=== PATIENT | female | born 1995 | race Caucasian/White ===

== ENCOUNTER 2017-07-27 11:13 | Emergency (ER) | payer SELFPAY ==
[2017-07-27 11:15] VITALS: BP 106/51; PULSE 89; RESP 17; TEMP 36.2; O2SAT 98; BMI 38.3
--- NOTE | 2017-07-27 12:00 | ED.VISSUMM ---
- ER Visit Summary Date of Service: 07/27/17 Chief Complaint: Left ear pain, fever, chills, cough History of Present Illness: The patient is a 22 F who reports onset of body aches, fever, cough on the . Patient states her T-max is 101.3. This morning she woke with left ear pain states she is not able to hear out of it as well. Physical Examination: Vital signs are unremarkable. Patient's temperature here is 97.1. Patient is in no acute distress and is nontoxic appearing. He is sitting in a bedside chair. Head and neck examination is remarkable for left TM erythema and bulging. Right TM is clear. Posterior pharynx examination reveals drainage, but no tonsillar enlargement. Heart is regular rate and rhythm. Palpable pulses are noted throughout. Lungs are clear with good air movement throughout. Abdomen is soft and nontender. Bowel sounds are noted. Test Results: [] Emergency Department Course and Treatment: Patient was treated with Augmentin for her ear infection. I discussed the possibility of influenza. Patient states she is not interested in taking Tamiflu so she does not want to bother with a test. Treatment Plan: [] Disposition: Discharge Impression: Left otitis media This note was generated with Gigwalk dictation software. It may contain incorrect words, spelling, and punctuation that were not noted in review of the chart prior to signing ED Disposition - Plan for ED Patient: Disposition: Home or Assisted Living Chief Complaint: Ear Problem Instructions: ED Otitis Media Acute Adult Prescriptions: Amoxicillin/Potassium Clav [Augmentin 875-125 Tablet] 1 each PO BID #20 tablet Referrals: Red Freed MD [STAFF PHYSICIAN] - As Needed
[2017-07-27] MEDS: Amox/Clavulanate 875 MG Tablet PO (12:17)
[2017-07-27 12:18] VITALS: PULSE 84; RESP 17; O2SAT 98
== END 2017-07-27 12:18 | disposition home or self-care (01) ==
PROVIDERS: Emergency Provider Emergency Medicine
DX: H66.92 Otitis media, unspecified, left ear (principal); F41.9 Anxiety disorder, unspecified; F33.9 Major depressive disorder, recurrent, unspecified; F17.200 Nicotine dependence, unspecified, uncomplicated
CPT/HCPCS: 99283

== ENCOUNTER 2017-10-09 01:56 | Emergency (ER) | payer SELFPAY ==
[2017-10-09 01:58] VITALS: BP 143/83; PULSE 76; RESP 16; TEMP 37.1; O2SAT 99; BMI 36.8
--- NOTE | 2017-10-09 02:08 | ED.DCSUM_ITS ---
- ER Visit Summary Date of Service: 10/09/17 Chief Complaint: [Laceration left index finger] History of Present Illness: The patient is a 22 F [presents the emergency department with laceration to her left index finger. Patient states this evening she was trying to cut a grape when she accidentally lacerated her index finger. Patient states her last tetanus shot was approximately 8 years ago.] Physical Examination: [Left index finger-there is a 1 cm laceration to the dorsal-radial aspect of the distal phalanx. The wound is well approximated and just minimal blood oozing. Patient has normal range of motion and normal sensation.] Test Results: [None indicated] Emergency Department Course and Treatment: [Discussed with patient options of one suture versus cleaning the wound and applying Steri-Strips. Patient agrees with Steri-Strips at this time. Patient received tetanus booster.] Treatment Plan: [Patient to follow-up with primary care physician within next 5- 7 days for wound check.] Disposition: [Discharged home in stable condition. Patient advised to return if increasing pain, redness, swelling, or condition should worsen in any way.] Impression: [Laceration left index finger 1 cm with Steri-Strip repair] This note was generated with [employer]Now dictation software. It may contain incorrect words, spelling, and punctuation that were not noted in review of the chart prior to signing ED Disposition - Plan for ED Patient: Chief Complaint: Laceration Referrals: Care Physician,No Primary [Primary Care Provider] -
--- NOTE | 2017-10-09 02:08 | ED.DEP ---
ED Disposition - Plan for ED Patient: Chief Complaint: Laceration Instructions: ED Laceration Hand, ED Laceration Small Superf No Sutr Referrals: Care Physician,No Primary [Primary Care Provider] - Bunny Meyers MD [STAFF PHYSICIAN] - 5-7 Days
[2017-10-09] MEDS: Diphth,Pertuss(Acell),Tet Vac 0.5 ML Vial IM (02:16)
== END 2017-10-09 02:24 | disposition home or self-care (01) ==
LOC: ED 02:08
PROVIDERS: Emergency Provider Emergency Medicine
DX: S61.211A Laceration without foreign body of left index finger without damage to nail, initial encounter (principal); W26.0XXA Contact with knife, initial encounter; Y93.9 Activity, unspecified; Y92.9 Unspecified place or not applicable; Y99.9 Unspecified external cause status; Z23 Encounter for immunization; Z72.0 Tobacco use
CPT/HCPCS: 90715; 99283

== ENCOUNTER 2017-12-02 19:01 | Emergency (ER) | payer SELFPAY ==
[2017-12-02 19:02] VITALS: BP 120/69; PULSE 70; RESP 16; TEMP 36.8; O2SAT 98
[2017-12-02 19:13] VITALS: O2SAT 96
--- NOTE | 2017-12-02 19:57 | EKG12_ITS ---
Test Reason : SOB Blood Pressure : / mmHG Vent. Rate : 064 BPM Atrial Rate : 064 BPM P-R Int : 122 ms QRS Dur : 098 ms QT Int : 420 ms P-R-T Axes : 064 079 049 degrees QTc Int : 433 ms Normal sinus rhythm Normal ECG Confirmed by JOVAN COLORADO ([id number]), editor map MAE ALLEN ([id number]) on 12/14/2017 6:43:31 PM Referred By: NORMAN Confirmed By:JOVAN COLORADO
--- NOTE | 2017-12-02 20:00 | RAD_ITS ---
STUDY: X-RAY CHEST REASON FOR EXAM: Female, 22 years old. Shortness of breath TECHNIQUE: Single frontal view COMPARISON: June 19, 2017 FINDINGS: The lungs are clear and expanded. There is no demonstrated pleural abnormality. Normal size heart. Normal mediastinum and aleksander. Normal visualized pulmonary arteries. Normal visualized aortic arch and descending thoracic aorta. Normal visualized thoracic spine. Normal visualized ribs, clavicles, and shoulders. There is no demonstrated abnormality of the visualized soft tissue structures of the upper abdomen. RAD/Chest 1 View (Portable) IMPRESSION: Normal x-ray examination of the chest. Electronically Signed: Kenneth Weinberg DO at 20:43 EDT Tel [phone], Service support ,
[2017-12-02 20:50] LABS: Absolute Lymphocyte Count 2.99 X10^3/ul (0.83-4.51); Absolute Neutrophil Count 8.1 X10^3/uL (2.0-7.7); Basophil# 0.03 X10^3/uL; Basophil% 0.2 % (0-1); Eosinophil# 0.31 X10^3/uL; Eosinophils% 2.6 % (0-5); Hematocrit 40.3 % (37-47); Hemoglobin 13.3 g/dl (12.0-15.0); Lymphocyte # 2.99 X10^3/ul (4.0); Lymphocyte % 24.8 % (19-41); Mean Corpuscular Hgb 27.6 pg (27.0-32.0); Mean Corpuscular Volume 83.6 fL (81-99); Mean Platelet Vol. 9.9 fl (6.2-12.0); Monocyte# 0.59 X10^3/uL; Monocyte% 4.9 % (0-10); Neutrophil # 8.12 X10^3/uL (2.7-7.7); Neutrophil % 67.4 % (47-70); Platelet Count 252 K/mm3 (150-450); RBC Distribution Width CV 13.7 % (11.6-14.6); RBC Distribution Width SD 41.5 fl (35.1-43.9); Red Blood Count 4.82 M/mm3 (4.2-5.4); White Blood Count 12.1 K/mm3 (4.4-11.0)
[2017-12-02 21:04] LABS: POSITIVE COUNT NO; POSITIVE DIFFERENTIAL NO; POSITIVE MORPHOLOGY NO
[2017-12-02 21:10] LABS: Anion Gap 6 (5-15); BUN 13 mg/dL (7-18); BUN/Creat Ratio 15.2 RATIO (10-20); Calcium,Total 8.6 mg/dL (8.5-10.1); Chloride 108 mmol/L (98-107); Creatinine, Serum 0.86 mg/dL (0.55-1.02); EST Glomerular Filtration Rate 86 mL/min (>60); Est Glom Filt Rate - Afr Amer 104 mL/min (>60); Estimated Creatinine Clearance 3.84 ml/min; Glucose 106 mg/dL (74-106); Potassium 3.4 mmol/L (3.5-5.1); Sodium Level 139 mmol/L (136-145)
[2017-12-02] MEDS: Ipratropium/Albuterol Sulfate 3 ML AMPUL.NEB INHALATION (22:09)
[2017-12-02 22:11] VITALS: PULSE 84; RESP 13
--- NOTE | 2017-12-02 22:54 | ED.VISSUMM ---
- ER Visit Summary Date of Service: 12/02/17 Chief Complaint: Shortness of breath History of Present Illness: The patient is a 22 F with shortness of breath that started this morning. Associated with a sore throat and some nausea. No significant past medical history. She does smoke. No fevers or other associated symptoms. Physical Examination: Vital signs unremarkable. Afebrile. Heart regular. Lungs clear. Abdomen soft and nontender calf soft and supple. Skin appears normal. Test Results: EKG showed sinus rhythm at a rate of 64. Chest x-ray normal. Laboratory studies unremarkable except for a white count of 12.1, potassium 3.4. Chest x-ray normal. Emergency Department Course and Treatment: Patient received a breathing treatment. This helped greatly with her symptoms. She did complain of some chest pain, so we did check an EKG and troponin which were normal. She is PERC negative Patient likely has an acute bronchitis. Albuterol as needed. Follow-up with primary care. Return if worse. Treatment Plan: As above Disposition: Discharged Impression: 1. Acute bronchitis This note was generated with Gochikuru dictation software. It may contain incorrect words, spelling, and punctuation that were not noted in review of the chart prior to signing ED Disposition - Plan for ED Patient: Chief Complaint: Shortness of Breath Referrals: Care Physician,No Primary [Primary Care Provider] -
--- NOTE | 2017-12-02 22:57 | ED.DEP ---
ED Disposition - Plan for ED Patient: Chief Complaint: Shortness of Breath Instructions: ED Bronchitis Asthmatic Prescriptions: Albuterol Inhaler [Ventolin Hfa] 2 puff INHALATION Q4H PRN PRN #1 inhaler PRN Reason: Wheezing Referrals: Ion Srivastava MD [NON-STAFF] -
[2017-12-02 23:08] VITALS: BP 141/75; PULSE 88; RESP 23; O2SAT 98
--- NOTE | 2017-12-02 23:09 | ED.RN ---
IV DC'ED, CATHETER, INTACT, SMALL GAUZE DRESSING PLACED. DISCHARGE INSTRUCTIONS GIVEN TO AND REVIEWED WITH PATIENT, PATIENT DENIES QUESTIONS OR CONCERNS AND VOICES UNDERSTANDING OF DISCHARGE INSTRUCTIONS. PT AMBULATES OUT OF ROOM WITHOUT DIFFICULTY.
== END 2017-12-02 23:10 | disposition home or self-care (01) ==
PROVIDERS: Emergency Provider Emergency Medicine
DX: J20.9 Acute bronchitis, unspecified (principal); F17.200 Nicotine dependence, unspecified, uncomplicated
CPT/HCPCS: 71045; 80048; 84484; 85025; 93005; 94640; 99284; A4216

== ENCOUNTER 2018-04-08 01:35 | Emergency (ER) | payer SELFPAY ==
[2018-04-08 01:35] VITALS: BP 146/85; PULSE 84; RESP 18; TEMP 37; O2SAT 99; BMI 39.9
--- NOTE | 2018-04-08 01:49 | ED.DCSUM_ITS ---
- ER Visit Summary Date of Service: 04/08/18 Chief Complaint: Sore throat History of Present Illness: The patient is a 22 F with no primary care physician. She reports she has sore throat that began yesterday. She has sharp pain is 7-10 with swallowing. Is also worsened with breathing or talking. Is 5 out of 10 at rest. She is not taking anything for pain. She has had subjective fever and chills. She denies a cough. States that her 2-year-old son at home has strep throat. Physical Examination: Vitals: Stable. Afebrile. General: Well-nourished and well-developed. Head: Normocephalic atraumatic. HEENT: Tonsils are absent. There is posterior oropharyngeal erythema. There is no evidence of a peritonsillar abscess. She does have tender anterior cervical adenopathy bilaterally. Neck: Supple, no lymphadenopathy. No JVD. Nontender. Cardiovascular: Regular rate and rhythm. No murmurs. Respiratory: No respiratory distress. Clear to auscultation bilaterally. Abdominal: Soft, nontender, nondistended, normal bowel sounds. No guarding, rebound, or peritoneal signs. Back: Nontender. Extremities: Nontender, no edema. Skin: Normal color, no rash. Neurologic: Alert and oriented ?3. Cranial nerves II through XII are intact. Normal strength and sensation. Psych: Normal affect. Emergency Department Course and Treatment: Patient's Centor score is 3. She does not have enlarged tonsils or exudate as she has status post tonsillectomy. I discussed her the treatment options. She would like to be treated regardless of the results of the strep test. Because of this this was not sent. Patient was given a dose of naproxen, amoxicillin, dexamethasone p.o. She is resting comfortably. Treatment Plan: Patient will be discharged on amoxicillin and naproxen. Instructed to follow-up Dr. Velázquez in 1 week if not improving. Return to the emergency department for any worsening symptoms. Disposition: To home in improved and stable condition. Impression: 1. Pharyngitis, presumed strep. This note was generated with Green[employer] software. It may contain incorrect words, spelling, and punctuation that were not noted in review of the chart prior to signing ED Disposition - Plan for ED Patient: Disposition: Home or Assisted Living Chief Complaint: Sore Throat Instructions: ED Strep Pharyngitis Poss Prescriptions: Naproxen [Naprosyn] 500 mg PO BID #14 tablet Amoxicillin 500 mg PO TID #30 tablet Referrals: Karli Velázquez MD [STAFF PHYSICIAN] - 1 Week if not improving
[2018-04-08] MEDS: Naproxen 250 MG Tablet 500 MG PO (02:06)
[2018-04-08] MEDS: AMOXICILLIN 500 MG CAPSULE PO (02:06)
[2018-04-08 02:09] VITALS: BP 131/73; PULSE 91; RESP 16; O2SAT 100
--- NOTE | 2018-04-08 02:10 | ED.RN ---
THIS NURSE REVIEWED D/C INSTRUCTIONS WITH PT. PT VERBALIZED UNDERSTANDING OF INSTRUCTIONS. PT DENIES FURTHER NEEDS OR QUESTIONS AT THIS TIME. PT AMBULATES FROM ROOM ON OWN WITHOUT ASSISTANCE FROM STAFF
== END 2018-04-08 02:11 | disposition home or self-care (01) ==
LOC: ED 02:02
PROVIDERS: Emergency Provider Emergency Medicine
DX: J02.9 Acute pharyngitis, unspecified (principal); J45.909 Unspecified asthma, uncomplicated; Z72.0 Tobacco use
CPT/HCPCS: 99283

== ENCOUNTER 2020-02-18 05:07 | Emergency (ER) | payer SELFPAY ==
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
[2020-02-18 05:08] VITALS: BP 134/87; PULSE 95; RESP 18; TEMP 36.3; O2SAT 96; BMI 39.9
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
[2020-02-18 06:11] VITALS: BP 134/87; PULSE 95; RESP 18; TEMP 36.3; O2SAT 96
== END 2020-02-18 06:38 | disposition home or self-care (01) ==
PROVIDERS: Emergency Provider Emergency Medicine
DX: S90.31XA Contusion of right foot, initial encounter (principal); S90.511A Abrasion, right ankle, initial encounter; W20.8XXA Other cause of strike by thrown, projected or falling object, initial encounter; Y93.9 Activity, unspecified; Y92.9 Unspecified place or not applicable; Y99.9 Unspecified external cause status; F17.200 Nicotine dependence, unspecified, uncomplicated
CPT/HCPCS: 73610; 73630; 99282

== ENCOUNTER 2020-05-16 10:44 | Emergency (ER) | payer SELFPAY ==
[2020-05-16 10:53] VITALS: BP 125/90; PULSE 117; RESP 24; TEMP 37.7; O2SAT 98; BMI 41.5
[2020-05-16 10:57] VITALS: RESP 22; O2SAT 99
--- NOTE | 2020-05-16 11:50 | CM.ED ---
SOCIAL WORK Seed Pelleter from [place] here meeting with patient. Shruthi Guzmán, CHILD CARE GROUP LEADER, RECEIVER DISPATCHER
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
[2020-05-16 12:05] VITALS: BP 143/66; PULSE 92; RESP 16; O2SAT 98
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
[2020-05-16 13:00] VITALS: BP 143/66; PULSE 99; RESP 17; O2SAT 96
== END 2020-05-16 13:01 | disposition home or self-care (01) ==
PROVIDERS: Emergency Provider Emergency Medicine
DX: T59.811A Toxic effect of smoke, accidental (unintentional), initial encounter (principal); X00.1XXA Exposure to smoke in uncontrolled fire in building or structure, initial encounter; Y93.9 Activity, unspecified; Y92.009 Unspecified place in unspecified non-institutional (private) residence as the place of occurrence of the external cause; Y99.9 Unspecified external cause status; S50.311A Abrasion of right elbow, initial encounter; E66.9 Obesity, unspecified; F17.200 Nicotine dependence, unspecified, uncomplicated
CPT/HCPCS: 99285; A4216

== ENCOUNTER 2021-01-26 14:45 | Emergency (ER) | payer SELFPAY ==
[2021-01-26 14:46] VITALS: BP 149/75; PULSE 96; RESP 14; TEMP 35.8; O2SAT 97; BMI 48.4
--- NOTE | 2021-01-26 15:09 | EDS_ITS ---
HPI HPI - GI History of Present Illness Chief Complaint: Abd Pain Detail of Chief Complaint: King with abdominal pain and diarrhea that started 4 days ago. Informant: patient Narrative Narrative: Patient presents to the emergency department complaint of abdominal pain and diarrhea for 4 days ago. Patient thinks she may have food poisoning. She denies eating any undercooked or unusual foods. No other sick contacts known. Patient denies any fever or cough. She is had some mild dysuria. She denies any blood in her stool. Patient is 30 weeks . She is G2, P1. Patient still feeling the baby move. She is had no vaginal bleeding. Prior similar symptoms: No PFSH PFSH Home Medications albuterol sulfate 2 puff INHALATION Q4H PRN PRN #1 inhaler 12/02/17 [Rx Last Taken Unknown] Allergy/AdvReac Type Severity Reaction Status Date / Time Bleach (Sodium Hypochlorite) Allergy Hives Verified 01/26/21 14:46 Surgical History (Updated 01/26/21 @ 15:25 by Jena Stephenson) Hx of tonsillectomy Social History Smoking Status: Current every day smoker tobacco type: cigarettes ROS ROS ED Constitutional Constitutional ED: Reports systems reviewed and no addt'l complaints, except as documented; Denies body ache(s), change in weight or chills Eyes Eyes: Denies acute decrease in peripheral vision, change in vision, double vision or loss of vision ENT ENT ED: Reports none; Denies ear pain, lip swelling, loss taste/smell, neck pain, otalgia or sore throat Cardiovascular Cardiovascular: Reports none; Denies abdominal pain, chest pain with activity, leg edema, lightheadedness, palpitations, rapid heart rate or syncope Respiratory/Chest Respiratory/Chest: Reports none; Denies change in mental status, dry cough, dyspnea, hemoptysis, shortness of breath at rest or shortness of breath with exertion Gastrointestinal Gastrointestinal: Reports none, abdominal pain, diarrhea and nausea; Denies change in stool character, hematemesis, hematochezia, melena, rectal bleeding or vomiting Genitourinary Genitourinary ED: Reports none; Denies abdominal discomfort, anuria, dysuria, genital pain or polyuria Musculoskeletal Musculoskeletal: Reports none; Denies arthralgias, back pain, difficulty walking, extremity pain, muscle weakness or myalgias Integumentary Reports none; Denies abscess or rash Neurologic Neurologic: Reports none; Denies abnormal gait, confusion, focal weakness, frequent falls, headache(s), loss of vision, numbness, paresthesias, radicular pain, vertigo or weakness Psychiatric Psychiatric: Reports systems reviewed and no addt'l complaints, except as documented and none; Denies behavioral changes, confusion, difficulty concentrating, hallucinations, suicidal ideation, tactile hallucinations or visual hallucinations Endocrine Endocrinology: Denies none, cold intolerance, excessive sweating, fatigue or heat intolerance Hematologic/Lymphatic Hematologic/Lymphatic: Reports none; Denies anemia, easy bleeding or easy bruising Allergic/Immunologic Allergic/Immunologic ED: Denies as per HPI, none, lip swelling, mouth swelling, throat swelling, tongue swelling or hives EXAM Physical Exam Const Vital Signs: 01/26/21 14:46 Temperature 96.5 F L Temperature Source Temporal Pulse Rate 96 Respiratory Rate 14 Blood Pressure 149/75 H Blood Pressure Mean 99 Pulse Ox 97 Oxygen Delivery Method Room Air Positive well nourished and well developed General Appearance ED: well developed and NAD HEENT Reports TM's clear and moist mucous membranes normocephalic and atraumatic; Negative for trauma or tenderness Tympanic Membrane ED: Yes TM's clear Eyes PERRL and EOMs intact bilaterally General Eye ED: Negative for pale conjunctiva or scleral icterus Neck no lymphadenopathy, supple and no JVD General: Negative for tenderness Chest Wall inspection of chest normal and palpation of chest normal Chest: Negative for tenderness Resp normal respiratory effort and clear to auscultation bilaterally Effort and Inspection: Negative for respiratory distress or pain with movement Auscultation: Negative for rhonchi, wheezes or diminished lung sounds Cardio regular rate, regular rhythm, S1 normal heart sound, S2 normal heart sound and no murmurs Peripheral Pulses: pulses 2+ throughout GI normal to inspection, nondistended, normoactive bowel sounds, soft to palpation, non-tender, non-distended and no masses GI Narrative: Mild diffuse tenderness over the upper abdomen. Uterus is gravid. There is no rebound, rigidity, or peritoneal signs. Palpation: tender Back/Spine no CVA tenderness and no thoracic nor lumbar tenderness Extremity normal to inspection General Extremety ED: Negative for edema General Extremity: Negative for edema Neuro oriented x3, CN's II-XII intact bilaterally, no sensory deficits noted and gait normal Sensorium / Orientation: awake, alert, oriented to person, oriented to place and oriented to time Motor Exam: strength 5/5 throughout and strength abnormal Psych mental status grossly normal Skin no rashes or lesions noted and no wounds MDM MDM MDM Narrative Medical decision making narrative: Case discussed with patient as well as person on-call for patient's [facility]. I was asked to obtain a nonstress test in the emergency department which was performed and was normal. There was no evidence of contractions. Patient received 2 L of fluid she is feeling improved. She looks clinically well. I suspect she likely has a viral etiology for her diarrhea. She does not want any medication for home. Lab Data Attestation: I reviewed the patient's lab results. Labs: Laboratory Results - last 24 hr 01/26/21 01/26/21 01/26/21 15:21 15:38 15:38 WBC 8.6 RBC 4.19 L Hgb 11.7 L Hct 36.5 L MCV 87.1 MCH 27.9 MCHC 32.1 RDW Std Deviation 44.7 H RDW Coeff of Mirella 14.2 Plt Count 268 MPV 9.8 Immature Gran % (Auto) 0.200 Neut % (Auto) 73.4 H Lymph % (Auto) 17.5 L [place] % (Auto) 7.1 Eos % (Auto) 1.6 Baso % (Auto) 0.2 Absolute Neuts (auto) 6.3 Absolute Lymphs (auto) 1.50 Nucleated RBC % 0 Sodium 135 L Potassium 3.8 Chloride 108 H Carbon Dioxide 19.0 L Anion Gap 8 BUN 4 L Creatinine 0.43 L Estim Creat Clear Calc 162.57 Est GFR (MDRD) Af Amer 227 Est GFR (MDRD) Non-Af 187 BUN/Creatinine Ratio 9.3 L Glucose 77 Calcium 8.6 Total Bilirubin 0.40 AST 17 ALT 13 Alkaline Phosphatase 144 H Total Protein 6.6 Albumin 2.3 L Globulin 4.3 H Albumin/Globulin Ratio 0.5 L Lipase 45 L Urine Color Yellow Urine Clarity Clear Urine pH 7.0 Ur Specific [place] 1.010 Urine Protein 15 H Urine Glucose (UA) Normal Urine Ketones 50 H Urine Occult Blood 10 H Urine Nitrite Negative Urine Bilirubin Negative Urine Urobilinogen Normal Ur Leukocyte Esterase Negative Urine RBC 0 SEEN Urine WBC 0 SEEN Ur Squamous Epith Cells 0 SEEN Urine Bacteria 1+ Urine Mucus 0 SEEN Discharge Plan Triage Chief Complaint: Abd Pain ED Provider: Quan Aguila Dx/Rx/DC Orders Clinical Impression: Diarrhea Instructions: ED Diarrhea, Unknown Cause, ED Gastroenteritis, Viral (Adult) Prescriptions: No Action albuterol sulfate 1 INHALER inhaler 2 puff INHALATION Q4H PRN PRN (Reason: Wheezing) Qty: 1 RF: 0 Primary Care Provider: Care Physician,No Primary Referrals: Care Physician,No Primary [Primary Care Provider] - Activity Restrictions/Additional Instructions: see DR. Way in 3-5 days Disposition Disposition: Home, Self Care
[2021-01-26] MEDS: Ondansetron 4 MG/2 ML Vial IV (15:37)
[2021-01-26] MEDS: 0.9% Normal Saline 1,000 ML 1000 ML IV (15:37)
[2021-01-26 15:44] LABS: Mucous, Urine 0 SEEN /hpf (<or=2+); Red Blood Cells-Urine 0 SEEN /hpf (0-5); Squamous Epithelial Cells - UA 0 SEEN /hpf (5-10); White Blood Cells 0 SEEN /hpf (0-5)
[2021-01-26 15:46] LABS: Absolute Neutrophil Count 6.3 X10^3/uL (2.0-7.7); Basophil# 0.02 X10^3/uL; Basophil% 0.2 % (0-1); Eosinophil# 0.14 X10^3/uL; Eosinophils% 1.6 % (0-5); Hematocrit 36.5 % (37-47); Hemoglobin 11.7 g/dL (12.0-15.0); Lymphocyte % 17.5 % (19-41); Mean Corp Hgb Conc 32.1 g/dL (32-36); Mean Corpuscular Hgb 27.9 pg (27.0-32.0); Mean Corpuscular Volume 87.1 fL (81-99); Mean Platelet Vol. 9.8 fl (6.2-12.0); Monocyte# 0.61 X10^3/uL; Monocyte% 7.1 % (0-10); NRBC Flagged by Analyzer 0 % (0-5); Neutrophil # 6.28 X10^3/uL (2.7-7.7); Neutrophil % 73.4 % (47-70); Platelet Count 268 K/mm3 (150-450); RBC Distribution Width CV 14.2 % (11.6-14.6); RBC Distribution Width SD 44.7 fl (35.1-43.9); Red Blood Count 4.19 M/mm3 (4.2-5.4); White Blood Count 8.6 K/mm3 (4.4-11.0)
[2021-01-26 15:46] LABS: Color, Urine Yellow (Yellow); Glucose, Dipstick Normal (Normal); Ketone-Dipstick 50 mg/dl (Negative); Leukocyte Esterase-Dipstick Negative /ul (Negative); Nitrite-Dipstick Negative (Negative); Occult Blood-Urine 10 /ul (Negative); Protein-Dipstick 15 mg/dl (Negative); Urine Bilirubin Dipstick Negative (Negative); Urine Clarity Clear (Clear); Urine Urobilinogen Normal (Normal)
[2021-01-26 15:54] LABS: Bacteria 1+ /hpf (None Seen)
[2021-01-26 16:14] LABS: ALB/GLOB Ratio 0.5 RATIO (0.9-2.4); AST(SGOT) 17 U/L (15-37); Alanine Aminotransfer ALT/SGPT 13 U/L (13-56); Albumin, Serum 2.3 g/dL (3.2-5.0); Alkaline Phosphatase 144 U/L (45-117); Anion Gap 8 (5-15); BUN 4 mg/dL (7-18); BUN/Creat Ratio 9.3 RATIO (10-20); Calcium,Total 8.6 mg/dL (8.5-10.1); Chloride 108 mmol/L (98-107); Creatinine, Serum 0.43 mg/dL (0.55-1.02); EST Glomerular Filtration Rate 187 mL/min (>60); Est Glom Filt Rate - Afr Amer 227 mL/min (>60); Estimated Creatinine Clearance 162.57 ml/min; Globulin 4.3 g/dL (2.2-4.2); Glucose 77 mg/dL (74-106); Lipase 45 U/L (73-393); Potassium 3.8 mmol/L (3.5-5.1); Protein, Total 6.6 g/dL (6.4-8.2); Sodium Level 135 mmol/L (136-145)
--- NOTE | 2021-01-26 17:27 | NURSING ---
At 1650 pt seen in ED by this RN for NST due to nausea,vomiting and diarrhea. Mother notes decreased movement that increased when monitors placed on maternal abdomen. FHR baseline 140 with moderate variability and accelerations. movement audible several times and mother states she feels frequent movement. Call placed to [facility] at 1713 to report findings of reactive NST. Pt okay from OB standpoint per [facility] with instructions to give patient labor precautions. Pt verbalizes understanding. Informed ED nurse and physician of findings and that patient cleared from OB standpoint.
[2021-01-26] MEDS: 0.9% Normal Saline 1,000 ML 999 ML IV (17:43)
[2021-01-26 18:39] VITALS: BP 120/71; PULSE 88; RESP 16; O2SAT 99
[2021-01-26 19:25] VITALS: BP 120/71; PULSE 88; RESP 16; O2SAT 99
--- NOTE | 2021-01-27 06:58 | PCM.PN.OB ---
Subjective Subjective Seen in ED for abdominal pain and acute gastroenteritis. Called by ED for update on patient status and requested NST. Objective Data Objective Data Vital Signs: Vital Signs Temp Pulse Resp BP Pulse Ox 96.5 F L 88 16 120/71 99 01/26/21 14:46 01/26/21 19:25 01/26/21 19:25 01/26/21 19:25 01/26/21 19:25 Oxygen Delivery Method Room Air Weight: 273 lb 9.498 oz Body Mass Index (BMI) 48.4 Intake & Output: Intake and Output for Last 24 Hours 01/25/21 01/26/21 01/27/21 23:59 23:59 23:59 Intake Total 1999 Balance 1999 Lab / Micro Data Result Diagrams: 01/26/21 15:38 01/26/21 15:38 Labs: Laboratory Results - last 24 hr 01/26/21 15:21: Urine Color Yellow, Urine Clarity Clear, Urine pH 7.0, Ur Specific [place] 1.010, Urine Protein 15 H, Urine Glucose (UA) Normal, Urine Ketones 50 H, Urine Occult Blood 10 H, Urine Nitrite Negative, Urine Bilirubin Negative, Urine Urobilinogen Normal, Ur Leukocyte Esterase Negative, Urine RBC 0 SEEN, Urine WBC 0 SEEN, Ur Squamous Epith Cells 0 SEEN, Urine Bacteria 1+, Urine Mucus 0 SEEN 01/26/21 15:38: WBC 8.6, RBC 4.19 L, Hgb 11.7 L, Hct 36.5 L, MCV 87.1, MCH 27.9, MCHC 32.1, RDW Std Deviation 44.7 H, RDW Coeff of Mirella 14.2, Plt Count 268, MPV 9.8, Immature Gran % (Auto) 0.200, Neut % (Auto) 73.4 H, Lymph % (Auto) 17.5 L, [place] % (Auto) 7.1, Eos % (Auto) 1.6, Baso % (Auto) 0.2, Absolute Neuts (auto) 6.3, Absolute Lymphs (auto) 1.50, Nucleated RBC % 0 01/26/21 15:38: Sodium 135 L, Potassium 3.8, Chloride 108 H, Carbon Dioxide 19.0 L, Anion Gap 8, BUN 4 L, Creatinine 0.43 L, Estim Creat Clear Calc 162.57, Est GFR (MDRD) Af Amer 227, Est GFR (MDRD) Non-Af 187, BUN/Creatinine Ratio 9.3 L, Glucose 77, Calcium 8.6, Total Bilirubin 0.40, AST 17, ALT 13, Alkaline Phosphatase 144 H, Total Protein 6.6, Albumin 2.3 L, Globulin 4.3 H, Albumin/Globulin Ratio 0.5 L, Lipase 45 L Micro: Microbiology 01/26/21 15:21 Stool Enteric Bacteriology - Final Campylobacter species NST FHR Rate Baby A Baseline: 130 Variability:: Moderate Accelerations:: 15 x 15 Decelerations:: Variable NST Reactive:: Yes Uterine Activity:: none Assessment & Plan (1) Diarrhea: PLAN: NST reactive D/C by ED
== END 2021-01-26 19:26 | disposition home or self-care (01) ==
PROVIDERS: Emergency Provider Emergency Medicine
DX: O26.893 Other specified pregnancy related conditions, third trimester (principal); R19.7 Diarrhea, unspecified; R10.9 Unspecified abdominal pain; R30.0 Dysuria; O99.333 Smoking (tobacco) complicating pregnancy, third trimester; F17.210 Nicotine dependence, cigarettes, uncomplicated; Z3A.30 30 weeks gestation of pregnancy
CPT/HCPCS: 80053; 81001; 83690; 85025; 87506; 96361; 96374; 99284; J7030; A4216; J2405

== ENCOUNTER 2021-03-08 17:00 | Outpatient (CLI) | payer MEDICAID, SELFPAY ==
[2021-03-08 17:15] VITALS: TEMP 36.7
[2021-03-08 17:16] VITALS: BP 131/62; PULSE 90
[2021-03-08 17:27] VITALS: BMI 47.7
[2021-03-08 18:09] LABS: ROM Internal Control Test YES-OK TO RESULT pt. (Internal QC); ROM Patient Test Negative (Negative)
--- NOTE | 2021-03-09 11:12 | OB.TRI.NOTE ---
HPI - General HPI Narrative REGINALD CESPEDES, is a 25 F who presents at 35w5d with leakage of fluid. PFSH PFSH Home Medications albuterol sulfate 2 puff INHALATION Q4H PRN PRN #1 inhaler 12/02/17 [Rx Last Taken Unknown] magnesium 200 mg PO BID 03/08/21 [History Last Taken 03/07/21 06:00] Allergy/AdvReac Type Severity Reaction Status Date / Time Bleach (Sodium Hypochlorite) Allergy Hives Verified 03/08/21 17:28 ferrous fumarate Allergy Hives Verified 03/08/21 17:28 [From Prenatabs FA] folic acid Allergy Hives Verified 03/08/21 17:28 [From Prenatabs FA] vitamins with Allergy Hives Verified 03/08/21 17:28 calcium no.78 [From Prenatabs FA] Surgical History (Updated 01/26/21 @ 15:25 by Jena Stephenson) Hx of tonsillectomy Social History Smoking Status: Current every day smoker tobacco type: cigarettes NST FHR Rate Baby A Baseline: 125 Variability:: Moderate Accelerations:: 15 x 15 Decelerations:: Variable NST Reactive:: Yes Uterine Activity:: Irregular Assessment & Plan (1) Vaginal discharge: PLAN: 1) ROM plus negative 2) Labor instructions reviewed 3) D/C home
== END 2021-03-08 19:25 | disposition home or self-care (01) ==
LOC: WPOUT 17:07 → WP 17:08
PROVIDERS: Visit Provider Advanced Practice Midwife
DX: O26.893 Other specified pregnancy related conditions, third trimester (principal); N89.8 Other specified noninflammatory disorders of vagina; Z3A.35 35 weeks gestation of pregnancy; F17.210 Nicotine dependence, cigarettes, uncomplicated; O99.333 Smoking (tobacco) complicating pregnancy, third trimester
CPT/HCPCS: 59025; 59050; 84112; 99218; G0378

== ENCOUNTER 2021-03-26 00:50 | Inpatient (IN) | payer SELFPAY ==
[2021-03-26] VITALS (58 sets, daily range): BP systolic 98–171; BP diastolic 42–97; PULSE 71–120; RESP 18; TEMP 36.1–37.4; O2SAT 78–100; BMI 47.2
[2021-03-26 00:48] LABS: ROM Internal Control Test YES-OK TO RESULT pt. (Internal QC)
[2021-03-26 00:49] LABS: ROM Patient Test POSITIVE (Negative)
[2021-03-26] MEDS: Lactated Ringers 1,000 ML 50 ML IV (01:21)
[2021-03-26 01:38] LABS: Absolute Neutrophil Count 8.3 X10^3/uL (2.0-7.7); Basophil# 0.03 X10^3/uL; Basophil% 0.3 % (0-1); Eosinophil# 0.16 X10^3/uL; Eosinophils% 1.4 % (0-5); Hematocrit 35.8 % (37-47); Hemoglobin 11.4 g/dL (12.0-15.0); Lymphocyte % 19.3 % (19-41); Mean Corp Hgb Conc 31.8 g/dL (32-36); Mean Corpuscular Hgb 26.8 pg (27.0-32.0); Mean Corpuscular Volume 84.2 fL (81-99); Mean Platelet Vol. 10.2 fl (6.2-12.0); Monocyte# 0.65 X10^3/uL; Monocyte% 5.7 % (0-10); NRBC Flagged by Analyzer 0 % (0-5); Neutrophil # 8.27 X10^3/uL (2.7-7.7); Neutrophil % 72.7 % (47-70); Platelet Count 295 K/mm3 (150-450); RBC Distribution Width CV 15.5 % (11.6-14.6); Red Blood Count 4.25 M/mm3 (4.2-5.4); White Blood Count 11.4 K/mm3 (4.4-11.0)
[2021-03-26] MEDS: Penicillin G 3,000,000 Units 50 ML 100 UNITS IV ×2 (05:50→10:05)
[2021-03-26] MEDS: Oxytocin 30 units/NS 500 ml 30 UNITS/500 ML IV.SOLN IV (06:36)
--- NOTE | 2021-03-26 08:18 | PCM.HP.OB ---
HPI - General General Date of Admission: 03/26/21 HPI Narrative REGINALD CESPEDES, is a 25 F @ 38.2 weeks with SROM approx 11pm on 09/22/20 clear fluid. Maternal Data Information Final JUWAN: 04/07/21 Final JUWAN Source: US <20 weeks Gestational age: 38.2 [facility] Medical History (Updated 03/26/21 @ 08:[address] Yasmeen Eisenberg MD) Anemia Anxiety Asthma Chlamydia infection affecting Depression Post traumatic stress disorder (PTSD) Home Medications albuterol sulfate 2 puff INHALATION Q4H PRN PRN #1 inhaler 12/02/17 [Rx Last Taken Unknown] magnesium 200 mg PO BID 03/08/21 [History Last Taken 03/17/21] Allergy/AdvReac Type Severity Reaction Status Date / Time Bleach (Sodium Hypochlorite) Allergy Hives Verified 03/26/21 00:31 ferrous fumarate Allergy Hives Verified 03/26/21 00:31 [From Prenatabs FA] folic acid Allergy Hives Verified 03/26/21 00:31 [From Prenatabs FA] vitamins with Allergy Hives Verified 03/26/21 00:31 calcium no.78 [From Prenatabs FA] Surgical History (Updated 01/26/21 @ 15:25 by Jena Stephenson) Hx of tonsillectomy Social History Smoking Status: Current every day smoker tobacco type: cigarettes History Elective abortions Hx Para 1 Spontaneous abortions Hx # Term Pregnancies Ectopic pregnancies Hx # Pregnancies Multiple births # of living children NST FHR Rate Baby A Baseline: 120 Variability:: Moderate Accelerations:: 15 x 15 Decelerations:: None NST Reactive:: Yes Uterine Activity:: irregular Vital Signs Vital Signs Vital Signs: 03/26/21 00:06 03/26/21 00:07 03/26/21 00:11 Temperature 97.0 F L Temperature Source Temporal Pulse Rate 106 H 120 H 94 Blood Pressure 135/83 H BP Systolic 135 BP Diastolic 83 Pulse Ox 97 97 03/26/21 00:16 03/26/21 00:21 03/26/21 00:29 Temperature Temperature Source Pulse Rate 106 H 105 H 108 H Blood Pressure BP Systolic BP Diastolic Pulse Ox 98 97 97 03/26/21 00:34 03/26/21 00:39 03/26/21 00:45 Temperature Temperature Source Pulse Rate 110 H 106 H 103 H Blood Pressure BP Systolic BP Diastolic Pulse Ox 98 98 97 03/26/21 00:50 03/26/21 00:55 03/26/21 01:00 Temperature Temperature Source Pulse Rate 105 H 102 H 97 Blood Pressure BP Systolic BP Diastolic Pulse Ox 98 97 97 03/26/21 01:05 03/26/21 03:53 03/26/21 05:55 Temperature 97.9 F Temperature Source Temporal Pulse Rate 103 H 75 81 Blood Pressure 139/68 H 121/58 H BP Systolic 139 121 BP Diastolic 68 58 Pulse Ox 98 100 03/26/21 07:25 Temperature 98.3 F Temperature Source Temporal Pulse Rate 96 Blood Pressure 128/58 H BP Systolic 128 BP Diastolic 58 Pulse Ox 98 Weight Weight: 128.911 kg Body Mass Index (BMI) 47.2 Physical Exam Narrative VE: 3/80/-3 Const alert and oriented x3 General Appearance: cooperative HEENT normocephalic GI GI Narrative: Gravid, non tender to palpation. OB / External & Speculum: external exam normal Extremity normal to inspection Skin no rashes or lesions noted Neuro oriented x3 and CN's II-XII intact bilaterally Psych Appearance: grossly normal Labs Labs Labs: Blood Type O POSITIVE Antibody Screen NEGATIVE Hct 35.8 % (37-47) L Hgb 11.4 g/dL (12.0-15.0) L Rubella IgG Antibody 83.7 IU/mL Neisseria gonorrhoeae DNA (ROCIO) Negative (Negative) Assessment & Plan (1) Obesity affecting : (2) 38 weeks gestation of : (3) PROM (premature rupture of membranes): (4) Tobacco use affecting in third trimester, antepartum: PLAN: Admit to L&D [place] FHR/TOCO Epidural if requested for pain Monitor VS Anticipate continue pitocin at this time continue gbs prophylaxis
[2021-03-26] MEDS: Lactated Ringers 500 ML 999 ML IV ×2 (10:00→13:07)
[2021-03-26] MEDS: fentaNYL-bupivacaine (epidural) 100 ML BAG EPIDURAL (11:08)
[2021-03-26] MEDS: Oxytocin 30 units/NS 500 ml 30 UNITS/500 ML IV.SOLN 334 UNITS IV (14:27)
--- NOTE | 2021-03-26 14:35 | EX.PCM.OBRPT ---
Assessment & Plan (1) Vaginal delivery: (2) heart rate deceleration, delivered, current hospitalization: Maternal Data Information Final JUWAN: 04/07/21 Final JUWAN Source: US <20 weeks Gestational age: 38.2 Vaginal Delivery Maternal Presentation Maternal Presentation: Spontaneous Rupture of Membranes and Medically Indicated Induction Maternal Presentation: SROM- clear fluid- Pitocin started for IOL Type of Induction: Pitocin Medical Reason for Induction: Premature Rupture of Membranes Operative Information Date of Procedure: 03/26/21 Pre-Operative Diagnosis: term gestation, PROM Post-Operative Diagnosis: same, live male infant Surgery / Procedure Performed: Spontaneous Vaginal Delivery Type of Anesthesia: Epidural Drain: Martini to straight drain Estimated Blood Loss: 300 Time of Delivery: 14:19 Findings Description of Procedure: Patient progressed to fully dilated. Patient had poor maternal pushing efforts due to not being able to feel pressure or contractions. Epidural was then turned off and patient was able to feel. Good maternal pushing efforts head was . heart rate deceleration 70s to 90 bpm x approx 5 minutes. At this time decision was made to make a small right medial lateral episiotomy to expedite delivery. Patient was notified prior to making this incision. Once the RML was made the 's head delivered without difficulty. And the infant was placed on the mother's chest was vigorous at time of delivery. No nuchal cord was appreciated. Placenta was then delivered without complication and intact. Second-degree RML was appreciated. It was repaired with 2-0 Vicryl in the usual fashion. Skin was closed in a subcutaneous fashion using 3-0 Rapide. Presentation: Vertex Amniotic Membrane Rupture Type: Spontaneous Amniotic Fluid Description: Clear Placental Delivery Description: Expressed Placenta Disposition: [facility] Specimen(s) Removed: placenta Cord Vessel Description: 3 Vessels Cord Entanglement: None A Gender: Male (1 minute): 8 (5 minute): 9 Delayed Cord Clamping: Yes Post Vaginal Delivery Medications Given After Delivery: IV Pitocin Episiotomy Description: Right Mediolateral and 2nd degree Laceration: None Complication Complications: None Admit VTE Documentation VTE Present on Admission: No VTE Pharm Prophylaxis Ordered: No
[2021-03-26 16:08] LABS: Amphetamine Urine VISTA NEGATIVE (<1000 ng/mL); Barbiturate Urine VISTA NEGATIVE (< 200 ng/mL); Benzodiazepine Urine VISTA NEGATIVE (< 200 ng/mL); Cocaine Urine VISTA NEGATIVE (< 300 ng/mL); Ecstacy Urine VISTA NEGATIVE (< 500 ng/mL); Methadone Urine VISTA NEGATIVE (< 300 ng/mL); PCP Urine VISTA NEGATIVE (< 25 ng/mL); THC Urine VISTA NEGATIVE (< 50 ng/mL); Vista UDS pH Range 7
[2021-03-26] MEDS: Ibuprofen 600 MG Tablet PO ×2 (16:49→22:59)
[2021-03-26] MEDS: Acetaminophen 500 MG Tablet PO (20:43)
[2021-03-27 00:20] VITALS: BP 136/82; PULSE 88; RESP 18; TEMP 36.4; O2SAT 100
[2021-03-27] MEDS: Acetaminophen 500 MG Tablet PO (03:35)
[2021-03-27 04:55] VITALS: BP 118/73; PULSE 79; RESP 16; TEMP 36.9; O2SAT 98
[2021-03-27 05:06] LABS: Hemoglobin 10.3 g/dL (12.0-15.0); Mean Corp Hgb Conc 31.2 g/dL (32-36); Mean Corpuscular Hgb 26.5 pg (27.0-32.0); Mean Corpuscular Volume 84.8 fL (81-99); Mean Platelet Vol. 9.9 fl (6.2-12.0); Platelet Count 242 K/mm3 (150-450); RBC Distribution Width CV 15.4 % (11.6-14.6); RBC Distribution Width SD 46.5 fl (35.1-43.9); Red Blood Count 3.89 M/mm3 (4.2-5.4); White Blood Count 10.6 K/mm3 (4.4-11.0)
[2021-03-27 08:00] VITALS: BP 106/48; PULSE 78; RESP 18; TEMP 36.1; O2SAT 98
[2021-03-27] MEDS: Ibuprofen 600 MG Tablet PO (08:06)
--- NOTE | 2021-03-27 08:44 | PN.OBGYN_ITS ---
Subjective Subjective . Average lochia.Pain well controlled Resting well. No complaints. Objective Data Objective Data Vital Signs: Vital Signs Temp Pulse Resp BP Pulse Ox 97 F L 78 18 106/48 L 98 03/27/21 08:00 03/27/21 08:00 03/27/21 08:00 03/27/21 08:00 03/27/21 08:00 Oxygen Delivery Method Room Air Weight: 128.911 kg Body Mass Index (BMI) 47.2 Intake & Output: Intake and Output for Last 24 Hours 03/25/21 03/26/21 03/27/21 23:59 23:59 23:59 Intake Total 3063.70 / 3063.70 Output Total 1300 / 1300 Balance 1763.70 / 1763.70 Lab / Micro Data Result Diagrams: 03/27/21 05:00 Labs: Laboratory Results - last 24 hr 03/26/21 15:45: Urine Opiates Screen NEGATIVE, Urine Methadone Screen NEGATIVE, Ur Barbiturates Screen NEGATIVE, Ur Phencyclidine Scrn NEGATIVE, Ur Amphetamines Screen NEGATIVE, U Methamphetamin-MDMA NEGATIVE, U Benzodiazepines Scrn NEGATIV E, Urine Cocaine Screen NEGATIVE, U Cannabinoids Screen NEGATIVE, Ur Drug Screen Comment 03/27/21 05:00: WBC 10.6, RBC 3.89 L, Hgb 10.3 L, Hct 33.0 L, MCV 84.8, MCH 26.5 L, MCHC 31.2 L, RDW Std Deviation 46.5 H, RDW Coeff of Mirella 15.4 H, Plt Count 242, MPV 9.9 Micro: Microbiology 03/26/21 01:22 Nasal Secretion SARS-CoV-2 Antigen (Rapid) - Final Physical Exam Const alert and no apparent distress Narrative: Fundus firm, below umbilicus. Assessment & Plan (1) Normal vaginal delivery: PLAN: day #1 status post vaginal delivery. Male is breast and bottlefeeding and doing well. Patient would like discharge home today.
--- NOTE | 2021-03-27 08:45 | DS.PCM_ITS ---
Providers Date of Admission: 03/26/21 Primary Care Physician: Jo Ann Primary Care Phys Reason For Visit: VAGINAL DELIVERY Diagnosis Discharge Diagnosis (1) Normal vaginal delivery: Status: Acute Code(s): O80 - Encounter for full-term uncomplicated delivery Medications at Discharge Home Medications albuterol sulfate 2 puff INHALATION Q4H PRN PRN #1 inhaler 12/02/17 magnesium 200 mg PO BID 03/08/21 naproxen 375 mg PO BID PRN 10 Days #20 tab 03/27/21 Hospital Course Operations None Procedures - (Vaginal delivery on 03/26/2021) Summary of Care Provided Hospital Course: 25-year-old multigravida admitted for premature rupture of membranes early on the morning of 03/26/2021. Labor was induced with Pitocin. She progressed to complete had uncomplicated vaginal delivery with a second- degree mediolateral episiotomy that was repaired. Him day #1 she was doing well and she desired discharged home with routine instructions. Weight / BMI Weight Weight: 128.911 kg Body Mass Index (BMI) 47.2 ABG / Lab / Microbiology Data Result Diagrams: 03/27/21 05:00 Laboratory: Laboratory Results - last 24 hr 03/26/21 15:45: Urine Opiates Screen NEGATIVE, Urine Methadone Screen NEGATIVE, Ur Barbiturates Screen NEGATIVE, Ur Phencyclidine Scrn NEGATIVE, Ur Amphetamines Screen NEGATIVE, U Methamphetamin-MDMA NEGATIVE, U Benzodiazepines Scrn NEGATIVE, Urine Cocaine Screen NEGATIVE, U Cannabinoids Screen NEGATIVE, Ur Drug Screen Comment 03/27/21 05:00: WBC 10.6, RBC 3.89 L, Hgb 10.3 L, Hct 33.0 L, MCV 84.8, MCH 26.5 L, MCHC 31.2 L, RDW Std Deviation 46.5 H, RDW Coeff of Mirella 15.4 H, Plt Count 242, MPV 9.9 Microbiology: Microbiology 03/26/21 01:22 Nasal Secretion SARS-CoV-2 Antigen (Rapid) - Final D/C Instructions Discharge Diet: No restrictions May resume sexual activity in: 6 weeks Call your doctor if your incision/area has: Continuous Slow Oozing, Sudden Increased Bleeding, Foul Smelling Discharge and Swelling at the incision site Call your doctor if you observe: Fever of 101 or Higher and Inability to urinate Please Follow Up With: Kennedi Kong MD When: Follow up with our office in 1-2 and 6 weeks or as needed. [phone] Meaningful Use Info Meaningful Use Diagnoses (Choose all that apply): None applicable Discharge Plan Admission Admit Date/Time: 03/26/21 00:50 Primary Reason for Your Visit: Vaginal delivery Attending Provider: Yasmeen Eisenberg Primary Care Provider: Care Physician,No Primary Discharge Orders/Prescriptions Prescriptions: New naproxen 375 mg tablet 375 mg PO BID PRN (Reason: pain) 10 Days Qty: 20 RF: 0 Continued albuterol sulfate 1 INHALER inhaler 2 puff INHALATION Q4H PRN PRN (Reason: Wheezing) Qty: 1 RF: 0 magnesium 200 mg Tablet 200 mg PO BID RF: 0 Referrals / Follow Up: Care Physician,No Primary [Primary Care Provider] - Disposition Disposition (needs filled in before D/C Order can be placed): Home, Self Care
[2021-03-27 14:00] VITALS: BP 116/62; PULSE 81; RESP 18; TEMP 36.7; O2SAT 98
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
== END 2021-03-27 17:45 | disposition home or self-care (01) | DRG 807 ==
LOC: WPOUT 00:51 → WP 00:51
PROVIDERS: Advanced Practice Midwife; Admitting Provider Obstetrics & Gynecology; Visit Provider Obstetrics & Gynecology
DX: O42.92 Full-term premature rupture of membranes, unspecified as to length of time between rupture and onset of labor (principal); O76 Abnormality in fetal heart rate and rhythm complicating labor and delivery; O99.52 Diseases of the respiratory system complicating childbirth; J45.909 Unspecified asthma, uncomplicated; Z20.822 Contact with and (suspected) exposure to COVID-19; O99.334 Smoking (tobacco) complicating childbirth; F17.210 Nicotine dependence, cigarettes, uncomplicated; O99.214 Obesity complicating childbirth; E66.9 Obesity, unspecified; Z3A.38 38 weeks gestation of pregnancy; Z37.0 Single live birth
CPT/HCPCS: 59025; 59050; 80307; 84112; 85025; 85027; 86850; 86900; 86901; 87426; 99218; J7120; G0378

== ENCOUNTER 2022-09-14 15:55 | Emergency (ER) | payer MEDICAID, SELFPAY ==
[2022-09-14 15:56] VITALS: BP 109/83; PULSE 84; RESP 16; TEMP 36.3; O2SAT 100; BMI 34.7
--- NOTE | 2022-09-14 18:02 | EX.ED.VIS.UR ---
HPI <JUANPABLO Sommers - Last Filed: 09/14/22 18:57> HPI - URI History of Present Illness Chief Complaint: Sore Throat Narrative Narrative: Patient presenting with a sore throat that she has had for the past few days. She also reports that she has decreased smell and taste, sweats and chills, and increased in fatigue. She is currently 3 months . She was worried that she might have COVID and would like a COVID test for work. She denies any shortness of breath, chest pain, abdominal pain, nausea, and vomiting. ROS <JUANPABLO Sommers - Last Filed: 09/14/22 18:57> ROS ED Constitutional Constitutional ED: Reports chills and sweats; Denies fever(s) Eyes Eyes: Denies blurry vision or diplopia ENT ENT ED: Reports sore throat; Denies rhinorrhea Cardiovascular Cardiovascular: Denies chest pain or palpitations Respiratory/Chest Respiratory/Chest: Denies cough or dyspnea Gastrointestinal Gastrointestinal: Denies abdominal pain, diarrhea, nausea or vomiting Genitourinary Genitourinary ED: Denies dysuria, hematuria or urinary urgency Musculoskeletal Musculoskeletal: Reports myalgias; Denies arthralgias, back pain or neck pain Integumentary Denies abscess, Abrasions or rash Neurologic Neurologic: Denies confusion, dizziness or paresthesias Psychiatric Psychiatric: Denies anxiety or depression PFSH <JUANPABLO Sommers - Last Filed: 09/14/22 18:57> [facility] Medical History Anemia Anxiety Asthma Chlamydia infection affecting Depression Normal vaginal delivery Post traumatic stress disorder (PTSD) Home Medications albuterol sulfate 90 mcg/actuation aerosol inhaler 2 puff inhalation Q4H PRN PRN Wheezing ##1 12/02/17 [Rx Last Taken Unknown] magnesium 200 mg tablet 200 mg PO BID muscle soreness 03/08/21 [History Last Taken 03/17/21] naproxen 375 mg tablet 375 mg PO BID PRN pain 10 days #20 tabs 03/27/21 [Rx Last Taken Unknown] Allergy/AdvReac Type Severity Reaction Status Date / Time amoxicillin [From Augmentin] Allergy Hives Verified 09/14/22 15:59 Bleach (Sodium Hypochlorite) Allergy Hives Verified 09/14/22 15:59 clavulanic acid Allergy Hives Verified 09/14/22 15:59 [From Augmentin] ferrous fumarate Allergy Hives Verified 09/14/22 15:59 [From Prenatabs FA] folic acid Allergy Hives Verified 09/14/22 15:59 [From Prenatabs FA] vitamins with Allergy Hives Verified 09/14/22 15:59 calcium no.78 [From Prenatabs FA] Surgical History Hx of tonsillectomy Social History Smoking Status: Current every day smoker tobacco type: cigarettes EXAM <JUANPABLO Sommers - Last Filed: 09/14/22 18:57> Physical Exam Const Vital Signs: 09/14/22 15:56 09/14/22 16:32 Temperature 97.4 F L Temperature Source Temporal Pulse Rate 84 Respiratory Rate 16 Respiratory Pattern Normal Blood Pressure 109/83 H Blood Pressure Mean 91 Pulse Ox 100 Oxygen Delivery Method Room Air Positive well nourished, well developed and no apparent distress General Appearance ED: well developed HEENT Reports normocephalic and head/scalp atraumatic HEENT Narrative: Posterior pharynx slightly erythemic without any exudates. Uvula midline, no peritonsillar abscess. Mouth ED: Yes moist mucous membranes normal Eyes PERRL and EOMs intact bilaterally Neck full ROM and supple Chest Wall inspection of chest normal Resp normal respiratory effort and clear to auscultation bilaterally Cardio regular rate and regular rhythm GI soft to palpation, non-tender, non-distended and no masses Back/Spine normal ROM and normal to inspection Extremity normal to inspection and full ROM Neuro oriented x3, CN's II-XII intact bilaterally, moves all extremities, no focal motor deficits and no sensory deficits noted Sensorium / Orientation: awake and alert Psych mental status grossly normal and thought process normal Skin no rashes or lesions noted and no wounds <Dr. Vance Pereira MD - Last Filed: 09/14/22 21:33> Physical Exam Const Vital Signs: 09/14/22 15:56 09/14/22 16:32 Temperature 97.4 F L Temperature Source Temporal Pulse Rate 84 Respiratory Rate 16 Respiratory Pattern Normal Blood Pressure 109/83 H Blood Pressure Mean 91 Pulse Ox 100 Oxygen Delivery Method Room Air [facility] <JUANPABLO Sommers - Last Filed: 09/14/22 18:57> [facility] Narrative Medical decision making narrative: Patient presenting with cold symptoms that she has had for the past few days. She would like to have a COVID test for work. This was obtained and came back negative. I do not feel that a strep test is necessary as patient's Centor score is 1, her posterior pharynx is very slightly erythemic without any exudates. This is likely of viral illness. She has been given instruction on supportive care measures. She is to follow-up with her PCP in 3 to 5 days and return for any worsening of symptoms. She is really well-appearing, in no acute distress, comfortable with the plan. She will be discharged home in stable condition. <Dr. Vance Pereira MD - Last Filed: 09/14/22 21:33> [facility] Narrative Medical decision making narrative: Patient presenting with cold symptoms that she has had for the past few days. She would like to have a COVID test for work. This was obtained and came back negative. I do not feel that a strep test is necessary as patient's Centor score is 1, her posterior pharynx is very slightly erythemic without any exudates. This is likely of viral illness. She has been given instruction on supportive care measures. She is to follow-up with her PCP in 3 to 5 days and return for any worsening of symptoms. She is really well-appearing, in no acute distress, comfortable with the plan. She will be discharged home in stable condition. I have personally performed a face to face assessment of the patient and have reviewed the NATALIO Note. I performed a substantive portion of the visit including all aspects of the following. My dawson findings include: History is remarkable for up respiratory symptoms with altered taste and smell. Patient was instructed to come to the emergency room for COVID testing by her boss. Patient did not denies photophobia, neck pain or neck stiffness. Does have mild headache. She does report aches. She does have vague symptoms. Exam is patient does not appear toxic. Vital signs are noted. HEENT exam is unremarkable. Heart lung exam is unremarkable. There is no dermatologic lesions noted. Medical Decision Making suspect patient has a viral infection. Will test for COVID because of altered taste and smell. The COVID test was negative. She was discharged to home with appropriate home-going instructions Other additions or changes: [None] Discharge Plan Triage Chief Complaint: Sore Throat ED Midlevel Provider: Sandra Rolle ED Provider: Vance Pereira Dx/Rx/DC Orders Clinical Impression: Acute viral pharyngitis Instructions: ED Pharyngitis, Viral Prescriptions: No Action albuterol sulfate 1 INHALER inhaler 2 puff INHALATION Q4H PRN PRN (Reason: Wheezing) Qty: 1 0RF magnesium 200 mg Tablet 200 mg PO BID naproxen 375 mg tablet 375 mg PO BID PRN (Reason: pain) 10 Days Qty: 20 0RF Primary Care Provider: Care Physician,No Primary Referrals: Care Physician,No Primary [Primary Care Provider] - Activity Restrictions/Additional Instructions: Please follow up with your PCP in 3 to 5 days, return for any worsening of symptoms. Stay well-hydrated. Disposition Disposition: Home, Self Care Discharge Date/Time: 09/14/22 17:59
== END 2022-09-14 17:59 | disposition home or self-care (01) ==
PROVIDERS: Emergency Provider Emergency Medicine; Visit Provider Emergency Medicine
DX: O99.519 Diseases of the respiratory system complicating pregnancy, unspecified trimester (principal); J02.8 Acute pharyngitis due to other specified organisms; B97.89 Other viral agents as the cause of diseases classified elsewhere; R51.9 Headache, unspecified; Z20.822 Contact with and (suspected) exposure to COVID-19; F17.210 Nicotine dependence, cigarettes, uncomplicated; O99.330 Smoking (tobacco) complicating pregnancy, unspecified trimester; Z3A.00 Weeks of gestation of pregnancy not specified
CPT/HCPCS: 87428; 99282

== ENCOUNTER 2022-11-19 11:46 | Emergency (ER) | payer MEDICAID, SELFPAY ==
[2022-11-19 11:47] VITALS: BP 126/70; PULSE 71; RESP 16; TEMP 36.2; O2SAT 100; BMI 36.9
--- NOTE | 2022-11-19 12:15 | EX.ED.DYSGE1 ---
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 States she is 18 weeks , had preeclampsia with a different , called her OB, and was advised to come to the ED. She states for weeks, she has been having visual disturbances with spots on occasion, some occasional shortness of breath, malaise, bloody noses, and states that she does not have any of those symptoms at this current time. [facility] Medical History Anemia Anxiety Asthma Chlamydia infection affecting Depression Normal vaginal delivery Post traumatic stress disorder (PTSD) Home Medications albuterol sulfate 90 mcg/actuation aerosol inhaler 2 puff inhalation Q4H PRN PRN Wheezing ##1 12/02/17 [Rx Last Taken Unknown] magnesium 200 mg tablet 200 mg PO BID muscle soreness 03/08/21 [History Last Taken 03/17/21] naproxen 375 mg tablet 375 mg PO BID PRN pain 10 days #20 tabs 03/27/21 [Rx Last Taken Unknown] Allergy/AdvReac Type Severity Reaction Status Date / Time amoxicillin [From Augmentin] Allergy Hives Verified 11/19/22 11:49 Bleach (Sodium Hypochlorite) Allergy Hives Verified 11/19/22 11:49 clavulanic acid Allergy Hives Verified 11/19/22 11:49 [From Augmentin] ferrous fumarate Allergy Hives Verified 11/19/22 11:49 [From Prenatabs FA] folic acid Allergy Hives Verified 11/19/22 11:49 [From Prenatabs FA] vitamins with Allergy Hives Verified 11/19/22 11:49 calcium no.78 [From Prenatabs FA] Surgical History Hx of tonsillectomy Social History Smoking Status: Current every day smoker tobacco type: cigarettes ROS ROS ED Constitutional Constitutional ED: Denies chills or fever(s) Eyes Eyes: Reports other Details: Occasional visual disturbance see HPI ; Denies diplopia ENT ENT ED: Denies rhinorrhea or sore throat Cardiovascular Cardiovascular: Denies chest pain, leg edema or palpitations Respiratory/Chest Respiratory/Chest: Reports dyspnea; Denies cough Gastrointestinal Gastrointestinal: Denies abdominal pain, diarrhea, nausea or vomiting Genitourinary Genitourinary ED: Denies dysuria or hematuria Musculoskeletal Musculoskeletal: Denies back pain or neck pain Integumentary Denies abscess or rash Neurologic Neurologic: Denies headache(s), paresthesias or weakness Psychiatric Psychiatric: Denies anxiety or suicidal thoughts EXAM Physical Exam Const Vital Signs: 11/19/22 11:47 11/19/22 13:44 Temperature 97.2 F L Temperature Source Temporal Pulse Rate 71 81 Respiratory Rate 16 16 Blood Pressure 126/70 H 112/64 Blood Pressure Mean 88 80 Pulse Ox 100 99 Oxygen Delivery Method Room Air Room Air Positive well nourished and well developed General Appearance ED: well developed and NAD HEENT Reports moist mucous membranes normocephalic and atraumatic Eyes PERRL and EOMs intact bilaterally Neck full ROM and supple Resp normal respiratory effort and clear to auscultation bilaterally Cardio regular rate, regular rhythm and no murmurs GI non-tender and non-distended Auscultation: normoactive bowel sounds Palpation: soft Back/Spine no CVA tenderness General Back: other FROM Extremity normal to inspection General Extremety ED: Negative for edema, pulses abnormal or tenderness General Extremity: Negative for edema or pulses abnormal Neuro oriented x3, CN's II-XII intact bilaterally and no sensory deficits noted Sensorium / Orientation: awake and alert Motor Exam: strength 5/5 throughout Skin no rashes or lesions noted and no wounds MDM MDM MDM Narrative Medical decision making narrative: Blood pressure here initially 126/70 in triage, during my evaluation it is 119/61 and then 120/65. Patient was observed here for a while while we awaited urine results, her most recent blood pressure is 112/64 and she has remained in this range. When asked her about the blood pressure she had earlier prior to arrival, she states she had a nurse check it manually with a stethoscope and it was consistent with her reading in the 160 range. She is been having symptoms for weeks, suspicious that it has been because of the blood pressure. Since she has no proteinuria, reassured this is not acute preeclampsia. Discussed with Pretty Waters with her gynecology office, she agrees. She asked that we send off CBC, CMP, P&C urine ratio, and a uric acid, and they will follow-up with her in the office. Patient is comfortable with that plan. We both agree no antihypertensive prescriptions right now. History & Record Review Additional record(s) reviewed:: Prior labs Lab Data Attestation: I reviewed the patient's lab results. Labs: Laboratory Results - last 24 hr 11/19/22 11/19/22 11/19/22 12:06 14:25 14:25 WBC 9.6 RBC 3.91 L Hgb 11.2 L Hct 34.1 L MCV 87.2 MCH 28.6 MCHC 32.8 RDW Std Deviation 45.1 H RDW Coeff of Mirella 14.1 Plt Count 245 MPV 9.8 Immature Gran % (Auto) 0.300 Neut % (Auto) 64.6 Lymph % (Auto) 27.7 [place] % (Auto) 5.0 Eos % (Auto) 2.1 Baso % (Auto) 0.3 Absolute Neuts (auto) 6.2 Absolute Lymphs (auto) 2.66 Nucleated RBC % 0 Sodium 140 Potassium 3.8 Chloride 108 H Carbon Dioxide 25.0 Anion Gap 7 BUN 7 Creatinine 0.47 L Estim Creat Clear Calc 158.92 Est GFR (MDRD) Af Amer 201 Est GFR (MDRD) Non-Af 166 BUN/Creatinine Ratio 14.9 Glucose 83 Uric Acid 3.3 Calcium 8.4 L Total Bilirubin 0.20 AST 10 L ALT 13 Alkaline Phosphatase 84 Total Protein 6.5 Albumin 2.7 L Globulin 3.8 Albumin/Globulin Ratio 0.7 L Urine Color Yellow Urine Clarity Clear Urine pH 7.0 Ur Specific [place] 1.010 Urine Protein Negative Urine Glucose (UA) Normal Urine Ketones Negative Urine Occult Blood Negative Urine Nitrite Negative Urine Bilirubin Negative Urine Urobilinogen Normal Ur Leukocyte Esterase Negative Urine RBC 0 SEEN Urine WBC 0 SEEN Ur Squamous Epith Cells 0-5 SEEN Urine Bacteria 0 SEEN Urine Mucus 0 SEEN U Random Total Protein Urine Creatinine Protein/Creatinin Ratio 11/19/22 14:30 WBC RBC Hgb Hct MCV MCH MCHC RDW Std Deviation RDW Coeff of Mirella Plt Count MPV Immature Gran % (Auto) Neut % (Auto) Lymph % (Auto) [place] % (Auto) Eos % (Auto) Baso % (Auto) Absolute Neuts (auto) Absolute Lymphs (auto) Nucleated RBC % Sodium Potassium Chloride Carbon Dioxide Anion Gap BUN Creatinine Estim Creat Clear Calc Est GFR (MDRD) Af Amer Est GFR (MDRD) Non-Af BUN/Creatinine Ratio Glucose Uric Acid Calcium Total Bilirubin AST ALT Alkaline Phosphatase Total Protein Albumin Globulin Albumin/Globulin Ratio Urine Color Urine Clarity Urine pH Ur Specific [place] Urine Protein Urine Glucose (UA) Urine Ketones Urine Occult Blood Urine Nitrite Urine Bilirubin Urine Urobilinogen Ur Leukocyte Esterase Urine RBC Urine WBC Ur Squamous Epith Cells Urine Bacteria Urine Mucus U Random Total Protein < 6.0 Urine Creatinine 18.90 Protein/Creatinin Ratio 302 H Discharge Plan Triage Chief Complaint: Hypertension ED Provider: Driss Virk Dx/Rx/DC Orders Clinical Impression: Episode of hypertension, Second trimester Instructions: Gestational Hypertension Prescriptions: No Action albuterol sulfate 1 INHALER inhaler 2 puff INHALATION Q4H PRN PRN (Reason: Wheezing) Qty: 1 0RF magnesium 200 mg Tablet 200 mg PO BID naproxen 375 mg tablet 375 mg PO BID PRN (Reason: pain) 10 Days Qty: 20 0RF Primary Care Provider: Care Physician,No Primary Referrals: Pretty Waters CNM [Med Staff - Adv Practice Prof] - As soon as possible Care Physician,No Primary [Primary Care Provider] - Activity Restrictions/Additional Instructions: Your blood pressure periodically, both when you are symptomatic and asymptomatic, and keep a record for your [employer] practice. Disposition Disposition: Home, Self Care Discharge Date/Time: 11/19/22 14:32
[2022-11-19 12:54] LABS: Bacteria 0 SEEN /hpf (None Seen); Mucous, Urine 0 SEEN /hpf (<or=2+); Red Blood Cells-Urine 0 SEEN /hpf (0-5); White Blood Cells 0 SEEN /hpf (0-5)
[2022-11-19 13:09] LABS: Color, Urine Yellow (Yellow); Glucose, Dipstick Normal (Normal); Ketone-Dipstick Negative (Negative); Leukocyte Esterase-Dipstick Negative /ul (Negative); Nitrite-Dipstick Negative (Negative); Occult Blood-Urine Negative /ul (Negative); Protein-Dipstick Negative (Negative); Urine Bilirubin Dipstick Negative (Negative); Urine Clarity Clear (Clear); Urine Urobilinogen Normal (Normal)
[2022-11-19 13:24] LABS: Squamous Epithelial Cells - UA 0-5 SEEN /hpf (5-10)
[2022-11-19 13:44] VITALS: BP 112/64; PULSE 81; RESP 16; O2SAT 99
[2022-11-19 14:36] LABS: Absolute Lymphocyte Count 2.66 X10^3/uL (0.83-4.51); Absolute Neutrophil Count 6.2 X10^3/uL (2.0-7.7); Basophil# 0.03 X10^3/uL; Basophil% 0.3 % (0-1); Eosinophils% 2.1 % (0-5); Hematocrit 34.1 % (37-47); Hemoglobin 11.2 g/dL (12.0-15.0); Lymphocyte # 2.66 X10^3/ul (0.83-4.51); Lymphocyte % 27.7 % (19-41); Mean Corp Hgb Conc 32.8 g/dL (32-36); Mean Corpuscular Hgb 28.6 pg (27.0-32.0); Mean Corpuscular Volume 87.2 fL (81-99); Mean Platelet Vol. 9.8 fl (6.2-12.0); Monocyte# 0.48 X10^3/uL; NRBC Flagged by Analyzer 0 % (0-5); Neutrophil # 6.21 X10^3/uL (2.7-7.7); Neutrophil % 64.6 % (47-70); Platelet Count 245 K/mm3 (150-450); RBC Distribution Width CV 14.1 % (11.6-14.6); RBC Distribution Width SD 45.1 fl (35.1-43.9); Red Blood Count 3.91 M/mm3 (4.2-5.4); White Blood Count 9.6 K/mm3 (4.4-11.0)
[2022-11-19 14:48] LABS: ALB/GLOB Ratio 0.7 RATIO (0.9-2.4); AST(SGOT) 10 U/L (15-37); Alanine Aminotransfer ALT/SGPT 13 U/L (13-56); Albumin, Serum 2.7 g/dL (3.2-5.0); Alkaline Phosphatase 84 U/L (45-117); Anion Gap 7 (5-15); BUN 7 mg/dL (7-18); BUN/Creat Ratio 14.9 RATIO (10-20); Calcium,Total 8.4 mg/dL (8.5-10.1); Chloride 108 mmol/L (98-107); Creatinine, Serum 0.47 mg/dL (0.55-1.02); EST Glomerular Filtration Rate 166 mL/min (>60); Est Glom Filt Rate - Afr Amer 201 mL/min (>60); Estimated Creatinine Clearance 158.92 ml/min; Globulin 3.8 g/dL (2.2-4.2); Glucose 83 mg/dL (74-106); Potassium 3.8 mmol/L (3.5-5.1); Protein, Total 6.5 g/dL (6.4-8.2); Sodium Level 140 mmol/L (136-145); Uric Acid 3.3 mg/dL (2.6-6.0)
[2022-11-19 14:58] LABS: Protein, Urine (Random) < 6.0 mg/dL (<11.9); Protein:Creat Ratio 302 mg/g CRE (0-200)
== END 2022-11-19 14:32 | disposition home or self-care (01) ==
PROVIDERS: Emergency Provider Emergency Medicine; Visit Provider Emergency Medicine
DX: O10.012 Pre-existing essential hypertension complicating pregnancy, second trimester (principal); F17.210 Nicotine dependence, cigarettes, uncomplicated; O99.332 Smoking (tobacco) complicating pregnancy, second trimester; R06.02 Shortness of breath; H53.9 Unspecified visual disturbance; Z3A.18 18 weeks gestation of pregnancy
CPT/HCPCS: 80053; 81001; 82570; 84156; 84550; 85025; 99282; A4216

== ENCOUNTER 2023-01-12 07:17 | Emergency (ER) | payer MEDICAID, SELFPAY ==
[2023-01-12 07:18] VITALS: BP 133/58; PULSE 92; RESP 20; TEMP 36.6; O2SAT 98; BMI 39.6
--- NOTE | 2023-01-12 07:48 | EX.ED.DYSGE1 ---
HPI History of Present Illness Chief Complaint: Suicidal PFSH PFS Medical History (Updated 01/12/23 @ 07:37 by Coco Allen) ADD (attention deficit disorder) Anemia Anxiety Asthma Bipolar 2 disorder Chlamydia infection affecting Depression Normal vaginal delivery Post traumatic stress disorder (PTSD) Home Medications magnesium 200 mg tablet 200 mg PO BID muscle soreness 03/08/21 [History Last Taken 03/17/21] naproxen 375 mg tablet 375 mg PO BID PRN pain 10 days #20 tabs 03/27/21 [Rx Last Taken Unknown] acetaminophen 500 mg tablet mg 01/12/23 [History Last Taken Unknown] Allergy/AdvReac Type Severity Reaction Status Date / Time amoxicillin [From Augmentin] Allergy Hives Verified 01/12/23 07:21 Bleach (Sodium Hypochlorite) Allergy Hives Verified 01/12/23 07:21 clavulanic acid Allergy Hives Verified 01/12/23 07:21 [From Augmentin] ferrous fumarate Allergy Hives Verified 01/12/23 07:21 [From Prenatabs FA] folic acid Allergy Hives Verified 01/12/23 07:21 [From Prenatabs FA] vitamins with Allergy Hives Verified 01/12/23 07:21 calcium no.78 [From Prenatabs FA] TUBURCULOSIS TEST AdvReac RASH Uncoded 01/12/23 07:22 Surgical History Hx of tonsillectomy Social History Smoking Status: Former smoker EXAM Physical Exam Const Vital Signs: 01/12/23 07:18 01/12/23 09:57 01/12/23 12:58 Temperature 97.9 F 96.8 F L Temperature Source Temporal Pulse Rate 92 100 Respiratory Rate 20 H 16 18 Blood Pressure 133/58 H 122/58 H Blood Pressure Mean 83 79 Pulse Ox 98 95 Oxygen Delivery Method Room Air MDM MDM MDM Narrative Medical decision making narrative: HISTORY OF PRESENT ILLNESS: 27-year-old female here for suicide ideation. She states she is been depressed all her life but things are worse. She states she is 5 months . She further states she has been feeling like she does not want to be here anymore. She states no recent stressors. States he is a G5, P3. Denies any decreased movement. Denies any vaginal bleeding or passage of any tissue. She denies attempting suicide. Denies any self injures behavior. Denies cocaine or methamphetamine but notes she has been smoking a hemp product REVIEW OF SYSTEMS: Pertinent positives: Suicidal ideation Pertinent negatives: Suicide attempt, homicidal nation, auditory or visual hallucinations PHYSICAL EXAM: Nursing triage notes reviewed, Vital signs reviewed Constitutional: please see mdm HENT: MMM Eyes: Pupils equal round and reactive to light, Extraocular muscles intact Neck: No stridor, no JVD, full neck ROM Lungs: Clear to auscultation, No wheezing or rales. No increased work of breathing, no conversational dyspnea, no accessory muscle use, no nasal flaring. No respiratory distress noted Heart: Regular rate and rhythm, No murmurs, No rubs and No gallops, 2+ distal pulses (radial, femoral, posterior tibial) in all extremities Abdomen: Soft, there is no tenderness, rigidity, rebound or guarding, no obvious peritoneal signs, no palpable pulsatile abdominal masses, no auscultated abdominal bruit. Gravid uterus : No CVAT Extremities: No edema Neuro: No focal neurological deficits, cranial nerves II through XII intact, 5/5 strength in all extremities. Intact sensation to light touch in all extremities, 2+ reflexes bilateral patella tendons. Normal gait. No ataxia. Skin: No rash or lesions noted Psych: MEDICAL DECISION MAKING: Chief Complaint: Suicidal ideation External records reviewed: Factors affecting care: 5 months OB, depression, anxiety, bipolar disorder History obtained from others: Consults: Behavioral health older adult social work specialist ALL IMAGES (IF OBTAINED) HAVE BEEN PERSONALLY REVIEWED AND INTERPRETED BY MYSELF. CBC with no leukocytosis, mild anemia, no thrombocytopenia Urinalysis shows no evidence of urinary inflammation suggestive of UTI, will give Keflex (given concern for asymptomatic bacteria). Will send for urine culture heart tones at 140 reassuring Serum alcohol negative Urine drug screen positive for THC [facility] Narrative: Patient was hemodynamically stable, afebrile, nontoxic-appearing. Abdominal exam was benign. We will obtain medical clearance labs. Patient was medically cleared. We will consult our behavioral health older adult social work specialist. Behavioral health consultant nurse was able to arrange inpatient psychiatric evaluation for the patient she was transferred in stable condition. The patient and/or family, caregivers express understanding. The patient and/or family, caregivers agrees with the plan. Total critical care time today provided was at least 0 minutes. This excludes separately billable procedures. Critical care time (if documented) is secondary to the patient having high probability of clinically significant/life threatening deterioration in the patient's condition which required my urgent intervention. Shared decision making: I will have a discussion with the patient and or visitors regarding risk/benefits of further testing or admission. They will be made aware of of the risk/benefits inherent in this decision they will be given the opportunity to voice understanding. Lab Data Attestation: I reviewed the patient's lab results. Labs: Laboratory Results - last 24 hr 01/12/23 01/12/23 08:30 12:28 WBC 7.9 RBC 3.93 L Hgb 10.8 L Hct 33.6 L MCV 85.5 MCH 27.5 MCHC 32.1 RDW Std Deviation 43.3 RDW Coeff of Mirella 14.0 Plt Count 221 MPV 9.6 Immature Gran % (Auto) 0.400 Neut % (Auto) 45.2 L Lymph % (Auto) 48.7 H [place] % (Auto) 3.7 Eos % (Auto) 1.1 Baso % (Auto) 0.9 Absolute Neuts (auto) 3.6 Absolute Lymphs (auto) 3.87 Nucleated RBC % 0 Reactive Lymphocytes 1+ Sodium 137 Potassium 3.7 Chloride 109 H Carbon Dioxide 23.0 Anion Gap 5 BUN 5 L Creatinine 0.48 L Estim Creat Clear Calc 155.61 Est GFR (MDRD) Af Amer 198 Est GFR (MDRD) Non-Af 163 BUN/Creatinine Ratio 10.5 Glucose 94 Calcium 8.4 L Urine Color Yellow Urine Clarity Clear Urine pH 7.0 Ur Specific Dike 1.010 Urine Protein 15 H Urine Glucose (UA) Normal Urine Ketones 15 H Urine Occult Blood Negative Urine Nitrite Negative Urine Bilirubin 1 H Urine Urobilinogen 8 H Ur Leukocyte Esterase 25 H Urine RBC 0 SEEN Urine WBC 0-5 SEEN Ur Squamous Epith Cells 0-5 SEEN Urine Bacteria RARE Urine Mucus 0 SEEN Urine Opiates Screen NEGATIVE Urine Methadone Screen NEGATIVE Ur Barbiturates Screen NEGATIVE Ur Phencyclidine Scrn NEGATIVE Ur Amphetamines Screen NEGATIVE MDMA (Ecstasy) Screen NEGATIVE U Benzodiazepines Scrn NEGATIVE Urine Cocaine Screen NEGATIVE U Cannabinoids Screen POSITIVE H Ur Drug Screen Comment Ethyl Alcohol < 3.0 POC Glucose 92 Discharge Plan Triage Chief Complaint: Suicidal ED Provider: Carlin Hightower Dx/Rx/DC Orders Prescriptions: No Action magnesium 200 mg Tablet 200 mg PO BID naproxen 375 mg tablet 375 mg PO BID PRN (Reason: pain) 10 Days Qty: 20 0RF acetaminophen 500 mg tablet Patient Comments: TAKE 2 TABLETS BY MOUTH EVERY 6 HOURS NEEDED FOR PAIN Primary Care Provider: Care Physician,No Primary Referrals: Care Physician,No Primary [Primary Care Provider] - Disposition Disposition: Psychiatric Hospital or Unit Discharge Location: [facility] Discharge Date/Time: 01/12/23 13:23
[2023-01-12 08:42] LABS: Mucous, Urine 0 SEEN /hpf (<or=2+); Red Blood Cells-Urine 0 SEEN /hpf (0-5)
[2023-01-12 08:45] LABS: Absolute Lymphocyte Count 3.87 X10^3/uL (0.83-4.51); Absolute Neutrophil Count 3.6 X10^3/uL (2.0-7.7); Basophil# 0.07 X10^3/uL; Basophil% 0.9 % (0-1); Eosinophil# 0.09 X10^3/uL; Eosinophils% 1.1 % (0-5); Hematocrit 33.6 % (37-47); Hemoglobin 10.8 g/dL (12.0-15.0); Lymphocyte # 3.87 X10^3/ul (0.83-4.51); Lymphocyte % 48.7 % (19-41); Mean Corp Hgb Conc 32.1 g/dL (32-36); Mean Corpuscular Hgb 27.5 pg (27.0-32.0); Mean Corpuscular Volume 85.5 fL (81-99); Mean Platelet Vol. 9.6 fl (6.2-12.0); Monocyte# 0.29 X10^3/uL; Monocyte% 3.7 % (0-10); NRBC Flagged by Analyzer 0 % (0-5); Neutrophil # 3.59 X10^3/uL (2.7-7.7); Neutrophil % 45.2 % (47-70); POSITIVE MORPHOLOGY YES; Platelet Count 221 K/mm3 (150-450); RBC Distribution Width SD 43.3 fl (35.1-43.9); Red Blood Count 3.93 M/mm3 (4.2-5.4); White Blood Count 7.9 K/mm3 (4.4-11.0)
[2023-01-12 08:48] LABS: Color, Urine Yellow (Yellow); Differential Indicated SCAN CRITERIA MET; Glucose, Dipstick Normal (Normal); Ketone-Dipstick 15 mg/dl (Negative); Leukocyte Esterase-Dipstick 25 /ul (Negative); Nitrite-Dipstick Negative (Negative); Occult Blood-Urine Negative /ul (Negative); Protein-Dipstick 15 mg/dl (Negative); Urine Bilirubin Dipstick 1 mg/dL (Negative); Urine Clarity Clear (Clear); Urine Urobilinogen 8 mg/dl (Normal)
[2023-01-12 08:56] LABS: Bacteria RARE /hpf (None Seen); Squamous Epithelial Cells - UA 0-5 SEEN /hpf (5-10); White Blood Cells 0-5 SEEN /hpf (0-5)
[2023-01-12 09:06] LABS: Alcohol, Blood (Medical)-Serum < 3.0 mg/dL
[2023-01-12 09:07] LABS: Amphetamine Urine VISTA NEGATIVE (<1000 ng/mL); Barbiturate Urine VISTA NEGATIVE (< 200 ng/mL); Benzodiazepine Urine VISTA NEGATIVE (< 200 ng/mL); Cocaine Urine VISTA NEGATIVE (< 300 ng/mL); Ecstacy Urine VISTA NEGATIVE (< 500 ng/mL); Methadone Urine VISTA NEGATIVE (< 300 ng/mL); PCP Urine VISTA NEGATIVE (< 25 ng/mL); THC Urine VISTA POSITIVE (< 50 ng/mL); Vista UDS pH Range 6
[2023-01-12 09:13] LABS: Anion Gap 5 (5-15); BUN 5 mg/dL (7-18); BUN/Creat Ratio 10.5 RATIO (10-20); Calcium,Total 8.4 mg/dL (8.5-10.1); Chloride 109 mmol/L (98-107); Creatinine, Serum 0.48 mg/dL (0.55-1.02); EST Glomerular Filtration Rate 163 mL/min (>60); Est Glom Filt Rate - Afr Amer 198 mL/min (>60); Estimated Creatinine Clearance 155.61 ml/min; Glucose 94 mg/dL (74-106); Potassium 3.7 mmol/L (3.5-5.1); Sodium Level 137 mmol/L (136-145)
[2023-01-12 09:22] LABS: Reactive Lymphocyte 1+
[2023-01-12 09:57] VITALS: RESP 16
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
--- NOTE | 2023-01-12 11:29 | ED.RN ---
called for lunch tray
--- NOTE | 2023-01-12 11:51 | CM.ED ---
Social Work SW contacted [facility] to inquire about bed availability; CORNELIUS informed bed availability would depend on admits from their ED but referral can be faxed for review. CORNELIUS contacted [facility] to inquire about bed availability, beds available. Plan: referrals faxed and pending at [place] and [facility]. Alayna NOE, CHOLO
--- NOTE | 2023-01-12 12:40 | CM.ED ---
Social Work [facility] accepting patient under MD Fragoso, [address] [phone] with ETA. [facility] [place] requesting ED doctor treats the UTI and completes a pink slip before patient is transferred. CORNELIUS reviewed accepting and requests with MD Campbell MD to address the UTI and completed pink slip. [place] slip faxed to [facility]. SW updated care team of acceptance, service unit operator to arrange transportation. SW met with patient and informed her she was accepted to [facility]. Patient requesting name and number of facility be written down so she can review with her mother, but otherwise reports understanding. Plan: [facility] for inpatient hospitalization CHOLO Sifuentes
[2023-01-12 12:45] LABS: Bedside Glucose 92 mg/dL (74-106)
[2023-01-12] MEDS: Cephalexin 250 MG Capsule 500 MG PO (12:50)
[2023-01-12 12:58] VITALS: BP 122/58; PULSE 100; RESP 18; TEMP 36; O2SAT 95
--- NOTE | 2023-01-12 13:21 | ED.RN ---
REPORT CALLED TO Philip Roach at [phone]
== END 2023-01-12 13:23 ==
PROVIDERS: Emergency Provider Emergency Medicine; Visit Provider Emergency Medicine
DX: O99.342 Other mental disorders complicating pregnancy, second trimester (principal); F31.81 Bipolar II disorder; R45.851 Suicidal ideations; F41.9 Anxiety disorder, unspecified; Z87.891 Personal history of nicotine dependence; Z79.899 Other long term (current) drug therapy
CPT/HCPCS: 80048; 80307; 81001; 82077; 82962; 85025; 87086; 87088; 87426; 99284

== ENCOUNTER 2023-02-20 20:30 | Emergency (ER) | payer MEDICAID, SELFPAY ==
[2023-02-20 20:33] VITALS: BP 139/79; PULSE 79; RESP 16; TEMP 36.2; O2SAT 100; BMI 39.2
[2023-02-20 20:35] VITALS: BP 139/79; PULSE 79; RESP 16; TEMP 36.2; O2SAT 100
--- NOTE | 2023-02-20 20:57 | EDS_ITS ---
HPI History of Present Illness Chief Complaint: Dental Informant: patient Onset/Context/Timing Onset: Days (3) Context: Gradual Onset Timing: Intermittent Quality: Sharp Location: Left ear and left jaw Worsened by: Heat Relieved by: - (Nothing) Associated Symptoms Assocated Symptom - Dental: cold sensitivity and hot sensitivity; Negative for fever, jaw swelling or face swelling Narrative Narrative: Patient presents with left ear pain and left jaw pain that has been getting progressively worse over the last 3 days. Patient states it has been intermittent over the last 3 days but has not been constant for the last 4 hours. Patient describes her pain as sharp. Patient states it is over the left ear and into her left jaw. Patient states it is worsened with heat. Patient admits to hot and cold sensitivity. Patient states she is on amoxicillin for dental infection. Patient denies any fevers or chills. PFSH [facility] Medical History ADD (attention deficit disorder) Anemia Anxiety Asthma Bipolar 2 disorder Chlamydia infection affecting Depression Normal vaginal delivery Post traumatic stress disorder (PTSD) Home Medications magnesium 200 mg tablet 200 mg PO BID muscle soreness 03/08/21 [History Last Taken 03/17/21] naproxen 375 mg tablet 375 mg PO BID PRN pain 10 days #20 tabs 03/27/21 [Rx Last Taken Unknown] acetaminophen 500 mg tablet mg 01/12/23 [History Last Taken Unknown] Allergy/AdvReac Type Severity Reaction Status Date / Time amoxicillin [From Augmentin] Allergy Hives Verified 02/20/23 20:31 Bleach (Sodium Hypochlorite) Allergy Hives Verified 02/20/23 20:31 clavulanic acid Allergy Hives Verified 02/20/23 20:31 [From Augmentin] ferrous fumarate Allergy Hives Verified 02/20/23 20:31 [From Prenatabs FA] folic acid Allergy Hives Verified 02/20/23 20:31 [From Prenatabs FA] vitamins with Allergy Hives Verified 02/20/23 20:31 calcium no.78 [From Prenatabs FA] TUBURCULOSIS TEST AdvReac RASH Uncoded 01/12/23 07:22 Surgical History Hx of tonsillectomy Social History Smoking Status: Former smoker ROS ROS ED Constitutional Constitutional ED: Denies chills or fever(s) Eyes Eyes: Denies blurry vision or change in vision ENT ENT ED: Reports ear pain left; Denies rhinorrhea or sore throat Cardiovascular Cardiovascular: Reports chest pain; Denies palpitations Respiratory/Chest Respiratory/Chest: Reports dyspnea; Denies cough Gastrointestinal Gastrointestinal: Reports nausea; Denies vomiting Genitourinary Genitourinary ED: Denies dysuria or hematuria Musculoskeletal Musculoskeletal: Reports neck pain; Denies back pain Integumentary Denies abscess or rash Neurologic Neurologic: Reports headache(s); Denies weakness Allergic/Immunologic Allergic/Immunologic ED: Denies mouth swelling or urticaria EXAM Physical Exam Const Vital Signs: 02/20/23 20:33 02/20/23 20:35 Temperature 97.2 F L 97.2 F L Temperature Source Temporal Temporal Pulse Rate 79 79 Respiratory Rate 16 16 Blood Pressure 139/79 H 139/79 H Blood Pressure Mean 99 99 Pulse Ox 100 100 Positive well nourished, well developed and obese General Appearance ED: well developed and NAD Nutritional Appearance: obese HEENT HEENT Narrative: The right tympanic membrane and external auditory canal is clear. The left external auditory canal is edematous and erythematous. There is some mild erythema of the left tympanic membrane. There is no bulging noted. There is no discharge or drainage noted. Negative for trauma Tympanic Membrane ED: Yes TM abnormal erythematous (Left) Teeth and Gingiva: caries Throat: posterior oropharynx normal Neck supple and no JVD General: normal visual inspection; Negative for anterior neck swelling, tenderness or submandibular swelling Lymph Lymphatic: no lymphadenopathy noted Neuro oriented x3, CN's II-XII intact bilaterally, moves all extremities, no focal motor deficits and no sensory deficits noted Sensorium / Orientation: alert Motor Exam: strength 5/5 throughout Psych mental status grossly normal Skin no rashes or lesions noted MDM MDM MDM Narrative Medical decision making narrative: Patient was advised that this is most likely otitis externa. There may be some otitis media as well. Patient is currently on amoxicillin. Patient was instructed to continue this as prescribed. Patient was given a dose of Cortisporin otic suspension here and the bottle was dispensed with instructions to apply 4 drops to the left ear 4 times daily. Patient is currently 31 weeks . Patient was advised that Tylenol is the safest medication for pain for . Patient was instructed to continue this. Patient was instructed to follow-up with her primary care physician in 5 to 7 days for reevaluation. Patient understood and was agreeable with the plan. All questions were answered. Discharge Plan Triage Chief Complaint: Dental ED Provider: Bunny Reagan Dx/Rx/DC Orders Clinical Impression: Acute otitis externa of left ear, Dental caries Instructions: ED External Ear Infection (Adult) Prescriptions: No Action magnesium 200 mg Tablet 200 mg PO BID naproxen 375 mg tablet 375 mg PO BID PRN (Reason: pain) 10 Days Qty: 20 0RF acetaminophen 500 mg tablet Patient Comments: TAKE 2 TABLETS BY MOUTH EVERY 6 HOURS NEEDED FOR PAIN Primary Care Provider: Care Physician,No Primary Referrals: Mariely Barillas [Non-Staff] - 5-7 Days Care Physician,No Primary [Primary Care Provider] - Disposition Disposition: Home, Self Care
[2023-02-20] MEDS: Neomycin/Polymyxin/Dexameth 5ML OPTH.BTL 4 DRP OTIC (21:49)
[2023-02-20 21:51] VITALS: BP 139/79; PULSE 79; RESP 16; O2SAT 100
== END 2023-02-20 21:52 | disposition home or self-care (01) ==
PROVIDERS: Emergency Provider Emergency Medicine; Visit Provider Emergency Medicine
DX: O99.891 Other specified diseases and conditions complicating pregnancy (principal); F31.81 Bipolar II disorder; O99.513 Diseases of the respiratory system complicating pregnancy, third trimester; H60.502 Unspecified acute noninfective otitis externa, left ear; O99.613 Diseases of the digestive system complicating pregnancy, third trimester; Z3A.31 31 weeks gestation of pregnancy; K02.9 Dental caries, unspecified; J45.909 Unspecified asthma, uncomplicated; O99.343 Other mental disorders complicating pregnancy, third trimester; Z87.891 Personal history of nicotine dependence
CPT/HCPCS: 99283

== ENCOUNTER 2023-03-22 08:55 | Outpatient (CLI) | payer MEDICAID, SELFPAY ==
[2023-03-22] VITALS (9 sets, daily range): BP systolic 121; BP diastolic 65; PULSE 75–93; TEMP 37; O2SAT 97–99; BMI 39.0
--- NOTE | 2023-03-22 10:42 | OB.TRI.NOTE ---
HPI - General General Date of Admission: 03/22/23 Date of Service: 03/22/23 HPI Narrative REGINALD CESPEDES, is a 27 F who presents for NST Maternal Data Information Final JUWAN: 04/20/[birth year] Gestational age: 35 6/7 PFSH PFSH Medical History ADD (attention deficit disorder) Anemia Anxiety Asthma Bipolar 2 disorder Chlamydia infection affecting Depression Normal vaginal delivery Post traumatic stress disorder (PTSD) Home Medications magnesium 200 mg tablet 200 mg PO BID muscle soreness 03/08/21 [History Last Taken 03/17/21] acetaminophen 500 mg tablet 1,000 mg PO Q6H PRN pain 01/12/23 [History Last Taken Unknown] ascorbic acid (vitamin C) 1,000 mg tablet (C-1000) 1 g PO DAILY 03/22/23 [History Last Taken Unknown] ferrous sulfate 325 mg (65 mg iron) tablet (Feosol) 325 mg PO DAILY 03/22/23 [History Last Taken Unknown] Allergy/AdvReac Type Severity Reaction Status Date / Time tuberculin, purified protein Allergy Intermediate Rash Verified 03/22/23 09:03 deriva Bleach (Sodium Hypochlorite) Allergy Hives Verified 03/22/23 09:03 clavulanic acid Allergy Hives Verified 03/22/23 09:03 [From Augmentin] folic acid Allergy Hives Verified 03/22/23 09:03 [From Prenatabs FA] vitamins with Allergy Hives Verified 03/22/23 09:03 calcium no.78 [From Prenatabs FA] Surgical History Hx of tonsillectomy Social History Smoking Status: Former smoker History Elective abortions Hx Para 1 Spontaneous abortions Hx # Term Pregnancies Ectopic pregnancies Hx # Pregnancies Multiple births # of living children NST FHR Rate Baby A Baseline: 120 Variability:: Moderate Accelerations:: 15 x 15 Decelerations:: Variable and Prolonged (vs change in baseline) NST Reactive:: Yes FHR Category:: Category I (for > 20 min before discharge) Uterine Activity:: no regular ctxs Assessment & Plan (1) Maternal obesity syndrome in second trimester: PLAN: Risk multigravida. Nonstress test. Reactive. Normal blood pressure. Prolonged deceleration versus change in baseline. However category 1 before and after that. Category 1 and reactive for greater than 20 minutes before discharge. Discharge home with kick counts and follow-up in 1 week or as needed.
== END 2023-03-22 10:15 | disposition home or self-care (01) ==
LOC: WPOUT 08:58 → WP 08:58
PROVIDERS: Referring Provider Obstetrics & Gynecology; Visit Provider Obstetrics & Gynecology
DX: O26.02 Excessive weight gain in pregnancy, second trimester (principal); J45.909 Unspecified asthma, uncomplicated; Z87.891 Personal history of nicotine dependence; O99.512 Diseases of the respiratory system complicating pregnancy, second trimester; Z3A.00 Weeks of gestation of pregnancy not specified
CPT/HCPCS: 59025; 59050; 99221; G0378

== ENCOUNTER 2023-04-02 23:15 | Outpatient (CLI) | payer MEDICAID, SELFPAY ==
--- NOTE | 2023-04-02 23:25 | OB.TRI.NOTE ---
HPI - General HPI Narrative REGINALD CESPEDES, is a 27 F who presents to triage to rule out labor. Stated she has been having contractions since last Thursday night. Today contractions continue to increase in frequency but are not painful at all. Positive movement, denies any loss of fluid or vaginal bleeding. PFSH PFS Medical History (Updated 04/03/23 @ 07:21 by Dianne Mathis CNM) ADD (attention deficit disorder) Anemia Anxiety Asthma Bipolar 2 disorder Chlamydia infection affecting Depression Normal vaginal delivery Post traumatic stress disorder (PTSD) Home Medications magnesium 200 mg tablet 200 mg PO BID muscle soreness 03/08/21 [History Last Taken 03/17/21] acetaminophen 500 mg tablet 1,000 mg PO Q6H PRN pain 01/12/23 [History Last Taken Unknown] ascorbic acid (vitamin C) 1,000 mg tablet (C-1000) 1 g PO DAILY 03/22/23 [History Last Taken Unknown] ferrous sulfate 325 mg (65 mg iron) tablet (Feosol) 325 mg PO DAILY 03/22/23 [History Last Taken Unknown] Allergy/AdvReac Type Severity Reaction Status Date / Time tuberculin, purified protein Allergy Intermediate Rash Verified 04/03/23 00:09 deriva Bleach (Sodium Hypochlorite) Allergy Hives Verified 04/03/23 00:09 clavulanic acid Allergy Hives Verified 04/03/23 00:09 [From Augmentin] folic acid Allergy Hives Verified 04/03/23 00:09 [From Prenatabs FA] vitamins with Allergy Hives Verified 04/03/23 00:09 calcium no.78 [From Prenatabs FA] Surgical History Hx of tonsillectomy Social History Smoking Status: Former smoker History Elective abortions Hx Para 1 Spontaneous abortions Hx # Term Pregnancies Ectopic pregnancies Hx # Pregnancies Multiple births # of living children ROS Eyes Eyes: Denies blurry vision Cardiovascular Cardiovascular: Reports none; Denies chest pain at rest, chest pain with activity or dizziness Respiratory/Chest Respiratory/Chest: Denies cough or dyspnea Gastrointestinal Gastrointestinal: Reports none and other; Denies diarrhea or vomiting Genitourinary Genitourinary: Denies dysuria Musculoskeletal Musculoskeletal: Reports none Integumentary Integumentary: Reports none; Denies rash Neurologic Neurologic: Denies dizziness, headache(s) or other visual disturbances Psychiatric Psychiatric: Reports none Physical Exam Const alert and no apparent distress General Appearance: cooperative Orientation / Consciousness: awake Exam Limitations: no limitations HEENT normocephalic Eyes General Eye: normal appearance of both eyes Neck full ROM Chest inspection of chest normal Resp normal respiratory effort and normal air movement Effort and Inspection: symmetric chest movement Auscultation: clear to auscultation bilaterally Cardio regular rate GI soft to palpation, non-tender and non-distended Inspection: and other Back/Spine normal ROM Extremity full ROM, normal capillary refill and no calf tenderness Skin no rashes or lesions noted Neuro oriented x3 and CN's II-XII intact bilaterally Psych mental status grossly normal NST FHR Rate Baby A Baseline: 125 Variability:: Moderate Accelerations:: 15 x 15 Decelerations:: None NST Reactive:: Yes FHR Category:: Category I Uterine Activity:: irregular Assessment & Plan (1) 37 weeks gestation of : (2) Irregular contractions: (3) Bipolar 2 disorder: PLAN: Plan NST reactive, Cat. 1 tracing Minimal contractions that palpated mild and relaxed in between CE- unchanged at 0.5/thick/ high D/C home with labor precautions and follow up in office
== END 2023-04-03 00:35 | disposition home or self-care (01) ==
LOC: WPOUT 23:19 → WP 23:20
PROVIDERS: Visit Provider Advanced Practice Midwife
DX: O47.03 False labor before 37 completed weeks of gestation, third trimester (principal); F31.81 Bipolar II disorder; O99.343 Other mental disorders complicating pregnancy, third trimester; O99.013 Anemia complicating pregnancy, third trimester; F41.9 Anxiety disorder, unspecified; F43.10 Post-traumatic stress disorder, unspecified; Z3A.37 37 weeks gestation of pregnancy; F98.8 Other specified behavioral and emotional disorders with onset usually occurring in childhood and adolescence
CPT/HCPCS: 59025; 59050; 99221; G0378

== ENCOUNTER 2023-04-08 00:41 | Outpatient (CLI) | payer MEDICAID, SELFPAY ==
[2023-04-08 00:55] VITALS: TEMP 36.5
[2023-04-08 00:56] VITALS: BP 146/60; PULSE 91; O2SAT 96
[2023-04-08 01:18] VITALS: BP 122/67; PULSE 101
[2023-04-08 11:11] LABS: Color, Urine Yellow (Yellow); Urine Clarity Clear (Clear)
[2023-04-08 11:12] LABS: Glucose, Dipstick Normal (Normal); Ketone-Dipstick Negative (Negative); Leukocyte Esterase-Dipstick Negative /ul (Negative); Nitrite-Dipstick Negative (Negative); Occult Blood-Urine Negative /ul (Negative); Protein-Dipstick Negative (Negative); Urine Bilirubin Dipstick Negative (Negative); Urine Urobilinogen Normal (Normal)
--- NOTE | 2023-04-14 19:46 | OB.TRI.NOTE ---
HPI - General HPI Narrative REGINALD CESPEDES, is a 27 F who presents Maternal Data Information JUWAN Calculator Estimated Delivery Date Method Current WG Current Estimate 04/20/23 Manual 39w 1d Gestational age: 38&3 PFSH PFSH Medical History (Updated 04/14/23 @ 19:[address] Yolanda Cabrera MD) ADD (attention deficit disorder) Anemia Anxiety Asthma Bipolar 2 disorder Chlamydia infection affecting Depression Normal vaginal delivery Post traumatic stress disorder (PTSD) depression Superficial varicosities Home Medications magnesium 200 mg tablet 200 mg PO BID muscle soreness 03/08/21 [History Last Taken 03/17/21] ascorbic acid (vitamin C) 1,000 mg tablet (C-1000) 1 g PO DAILY 03/22/23 [History Last Taken Unknown] ferrous sulfate 325 mg (65 mg iron) tablet (Feosol) 325 mg PO DAILY anemia 03/22/23 [History Last Taken Unknown] acetaminophen 500 mg tablet 1,000 mg PO Q6H PRN pain 04/13/23 [History Last Taken Unknown] potassium 75 mg tablet 75 mg PO DAILY 04/13/23 [History Last Taken Unknown] Allergy/AdvReac Type Severity Reaction Status Date / Time tuberculin, purified protein Allergy Intermediate Rash Verified 04/09/23 19:49 deriva Bleach (Sodium Hypochlorite) Allergy Hives Verified 04/09/23 19:49 navy jorge Allergy Pain in Verified 04/13/23 07:27 joints vitamins with Allergy Hives Verified 04/09/23 19:49 calcium no.78 [From Prenatabs FA] vancomycin Allergy Rash Verified 04/13/23 07:27 Surgical History (Updated 04/13/23 @ 08:14 by Pretty Waters CNM) Hx of tonsillectomy Social History Smoking Status: Former smoker History Elective abortions Hx Para 2 Spontaneous abortions Hx # Term Pregnancies Ectopic pregnancies Hx # Pregnancies Multiple births # of living children Assessment & Plan (1) False labor: PLAN: Plan NST for false labor
== END 2023-04-08 02:35 | disposition home or self-care (01) ==
LOC: WPOUT 00:43 → WP 00:43
PROVIDERS: Referring Provider Obstetrics & Gynecology; Visit Provider Obstetrics & Gynecology
DX: O47.1 False labor at or after 37 completed weeks of gestation (principal); Z79.899 Other long term (current) drug therapy; Z87.891 Personal history of nicotine dependence; Z3A.38 38 weeks gestation of pregnancy
CPT/HCPCS: 59025; 59050; 81002; 99221; G0378

== ENCOUNTER 2023-04-09 18:50 | Outpatient (CLI) | payer MEDICAID, SELFPAY ==
[2023-04-09 19:26] VITALS: TEMP 36.7
[2023-04-09 19:32] VITALS: BP 143/67; PULSE 83; O2SAT 98
[2023-04-09 19:49] VITALS: BP 131/84; PULSE 88; BMI 40.8
[2023-04-09] MEDS: Acetaminophen 500 MG Tablet 1000 MG PO (20:27)
--- NOTE | 2023-04-09 21:16 | OB.TRI.NOTE ---
HPI - General HPI Narrative REGINALD CESPEDES, is a 27 F at 38.3 weeks gestation who presents to triage for rule out labor. She was seen in triage yesterday for same complaint and discharged home after no cervical change. Today reports continued contractions. Denies any loss of fluid or vaginal bleeding. Positive movement. Maternal Data Information JUWAN Calculator Estimated Delivery Date Method Current WG Current Estimate 04/20/23 Manual 38w 3d PFSH PFS Medical History (Updated 04/03/23 @ 07:21 by Dianne Mathis CNM) ADD (attention deficit disorder) Anemia Anxiety Asthma Bipolar 2 disorder Chlamydia infection affecting Depression Normal vaginal delivery Post traumatic stress disorder (PTSD) Home Medications magnesium 200 mg tablet 200 mg PO BID muscle soreness 03/08/21 [History Last Taken 03/17/21] ascorbic acid (vitamin C) 1,000 mg tablet (C-1000) 1 g PO DAILY 03/22/23 [History Last Taken Unknown] ferrous sulfate 325 mg (65 mg iron) tablet (Feosol) 325 mg PO DAILY 03/22/23 [History Last Taken Unknown] Allergy/AdvReac Type Severity Reaction Status Date / Time tuberculin, purified protein Allergy Intermediate Rash Verified 04/09/23 19:49 deriva Bleach (Sodium Hypochlorite) Allergy Hives Verified 04/09/23 19:49 clavulanic acid Allergy Hives Verified 04/09/23 19:49 [From Augmentin] folic acid Allergy Hives Verified 04/09/23 19:49 [From Prenatabs FA] vitamins with Allergy Hives Verified 04/09/23 19:49 calcium no.78 [From Prenatabs FA] Surgical History Hx of tonsillectomy Social History Smoking Status: Former smoker History Elective abortions Hx Para 1 Spontaneous abortions Hx # Term Pregnancies Ectopic pregnancies Hx # Pregnancies Multiple births # of living children ROS Eyes Eyes: Denies blurry vision Cardiovascular Cardiovascular: Reports none; Denies chest pain at rest, chest pain with activity or dizziness Respiratory/Chest Respiratory/Chest: Denies cough or dyspnea Gastrointestinal Gastrointestinal: Reports none and other; Denies diarrhea or vomiting Genitourinary Genitourinary: Denies dysuria Musculoskeletal Musculoskeletal: Reports none Integumentary Integumentary: Reports none; Denies rash Neurologic Neurologic: Denies dizziness, headache(s) or other visual disturbances Psychiatric Psychiatric: Reports none Physical Exam Const alert and no apparent distress General Appearance: cooperative Orientation / Consciousness: awake Exam Limitations: no limitations HEENT normocephalic Eyes General Eye: normal appearance of both eyes Neck full ROM Chest inspection of chest normal Resp normal respiratory effort and normal air movement Effort and Inspection: symmetric chest movement Auscultation: clear to auscultation bilaterally Cardio regular rate GI soft to palpation, non-tender and non-distended Inspection: and other Back/Spine normal ROM Extremity full ROM, normal capillary refill and no calf tenderness Skin no rashes or lesions noted Neuro oriented x3 and CN's II-XII intact bilaterally Psych mental status grossly normal NST FHR Rate Baby A Baseline: 130 Variability:: Moderate Accelerations:: 15 x 15 Decelerations:: None NST Reactive:: Yes FHR Category:: Category I Uterine Activity:: irregular Assessment & Plan (1) Bipolar 2 disorder: (2) Irregular contractions: (3) 38 weeks gestation of : PLAN: Plan CE 1.5/60/-3 Unchanged Cat. 1 tracing, NST reactive Tylenol 1000 mg PO x 1 now for pain Oral hydration Patient requesting to be induced tonight- discussed medical vs. elective inductions at 39 weeks gestation Support provided D/C home with follow up in office
== END 2023-04-09 21:21 | disposition home or self-care (01) ==
LOC: WPOUT 18:55 → WP 18:58
PROVIDERS: Visit Provider Advanced Practice Midwife
DX: O47.1 False labor at or after 37 completed weeks of gestation (principal); F31.81 Bipolar II disorder; Z3A.38 38 weeks gestation of pregnancy; J45.909 Unspecified asthma, uncomplicated; Z87.891 Personal history of nicotine dependence; O99.343 Other mental disorders complicating pregnancy, third trimester; O99.513 Diseases of the respiratory system complicating pregnancy, third trimester
CPT/HCPCS: 59025; 59050

== ENCOUNTER 2023-04-13 07:00 | Inpatient (IN) | payer MEDICAID, SELFPAY ==
[2023-04-13] VITALS (74 sets, daily range): BP systolic 101–161; BP diastolic 55–98; PULSE 74–108; RESP 16; TEMP 36.2–37.1; O2SAT 92–100; BMI 40.7
[2023-04-13] MEDS: Lactated Ringers 1,000 ML 50 ML IV (07:42)
[2023-04-13 08:06] LABS: Absolute Lymphocyte Count 2.22 X10^3/uL (0.83-4.51); Absolute Neutrophil Count 4.8 X10^3/uL (2.0-7.7); Basophil# 0.02 X10^3/uL; Basophil% 0.3 % (0-1); Eosinophil# 0.14 X10^3/uL; Eosinophils% 1.8 % (0-5); Hematocrit 33.4 % (37-47); Hemoglobin 10.3 g/dL (12.0-15.0); Lymphocyte # 2.22 X10^3/ul (0.83-4.51); Lymphocyte % 28.9 % (19-41); Mean Corp Hgb Conc 30.8 g/dL (32-36); Mean Corpuscular Hgb 25.6 pg (27.0-32.0); Mean Corpuscular Volume 83.1 fL (81-99); Mean Platelet Vol. 9.7 fl (6.2-12.0); Monocyte# 0.48 X10^3/uL; Monocyte% 6.3 % (0-10); NRBC Flagged by Analyzer 0 % (0-5); Neutrophil % 62.4 % (47-70); Platelet Count 248 K/mm3 (150-450); RBC Distribution Width CV 15.5 % (11.6-14.6); RBC Distribution Width SD 47.2 fl (35.1-43.9); Red Blood Count 4.02 M/mm3 (4.2-5.4); White Blood Count 7.7 K/mm3 (4.4-11.0)
--- NOTE | 2023-04-13 08:10 | PCM.HP.OB ---
HPI - General General Date of Admission: 04/13/23 HPI Narrative REGINALD CESPEDES, is a 27 F who presents at 39w0d with JUWAN 04/20/23. . Presents for induction of labor due to obesity. BMI 40. complicated by tobacco use and obesity. Maternal Data Information JUWAN Calculator Estimated Delivery Date Method Current WG Current Estimate 04/20/23 Manual 39w 0d PFSH PFSH Medical History (Updated 04/13/23 @ 09:30 by Abril Ko) ADD (attention deficit disorder) Anemia Anxiety Asthma Bipolar 2 disorder Chlamydia infection affecting Depression Normal vaginal delivery Post traumatic stress disorder (PTSD) depression Superficial varicosities Home Medications magnesium 200 mg tablet 200 mg PO BID muscle soreness 03/08/21 [History Last Taken 03/17/21] ascorbic acid (vitamin C) 1,000 mg tablet (C-1000) 1 g PO DAILY 03/22/23 [History Last Taken Unknown] ferrous sulfate 325 mg (65 mg iron) tablet (Feosol) 325 mg PO DAILY anemia 03/22/23 [History Last Taken Unknown] acetaminophen 500 mg tablet 1,000 mg PO Q6H PRN pain 04/13/23 [History Last Taken Unknown] potassium 75 mg tablet 75 mg PO DAILY 04/13/23 [History Last Taken Unknown] Allergy/AdvReac Type Severity Reaction Status Date / Time tuberculin, purified protein Allergy Intermediate Rash Verified 04/09/23 19:49 deriva Bleach (Sodium Hypochlorite) Allergy Hives Verified 04/09/23 19:49 navy jorge Allergy Pain in Verified 04/13/23 07:27 joints vitamins with Allergy Hives Verified 04/09/23 19:49 calcium no.78 [From Prenatabs FA] vancomycin Allergy Rash Verified 04/13/23 07:27 Surgical History (Updated 04/13/23 @ 08:14 by Pretty Waters CNM) Hx of tonsillectomy Social History Smoking Status: Former smoker History Elective abortions Hx Para 2 Spontaneous abortions Hx # Term Pregnancies Ectopic pregnancies Hx # Pregnancies Multiple births # of living children NST FHR Rate Baby A Baseline: 135 Variability:: Moderate Accelerations:: 15 x 15 Decelerations:: None FHR Category:: Category I Uterine Activity:: Irregular Vital Signs Vital Signs Vital Signs: 04/13/23 07:52 04/13/23 07:52 04/13/23 08:05 Pulse Rate 86 93 Blood Pressure 134/68 H BP Systolic 134 BP Diastolic 68 Pulse Ox 04/13/23 08:05 Pulse Rate Blood Pressure BP Systolic BP Diastolic Pulse Ox 98 Weight Weight: 248 lb 7.375 oz Body Mass Index (BMI) 40.7 Labs Labs Labs: Blood Type O POSITIVE Antibody Screen NEGATIVE Hct 33.4 % (37-47) L Hgb 10.3 g/dL (12.0-15.0) L Syphilis Total Ab Non-reactive Rubella IgG Antibody 83.7 IU/mL Chlamydia DNA (ROCIO) Negative (Negative) Neisseria gonorrhoeae DNA (ROCIO) Negative (Negative) Rhogam given: No GBS negative HIV negative Rubella Immune RPR non reactive HBsAG negative O positive Assessment & Plan (1) Encounter for induction of labor: (2) History of vacuum extraction assisted delivery: PLAN: Plan 1) Admit to labor and delivery 2) GBS negative 3) Continuous EFM 4) Martini and pitocin for induction of labor 5) collaborative physician and notified of patient status.
[2023-04-13] MEDS: 0.9% Normal Saline Single 100 ML IV.SOLN. INTRA-UTER (08:31)
[2023-04-13] MEDS: Oxytocin 15 Units/NS 250ml 15 UNITS/250 ML IV.SOLN 2 UNITS IV (08:33)
[2023-04-13 09:24] LABS: Syphilis Antibodies Non-reactive
[2023-04-13] MEDS: LACTATED RINGERS 500 ML 999 ML IV (10:30)
[2023-04-13] MEDS: fentaNYL-bupivacaine (epidural) 100 ML BAG EPIDURAL ×2 (11:18→15:57)
[2023-04-13] MEDS: Ondansetron 4 MG/2 ML Vial IV (13:07)
[2023-04-13] MEDS: Lactated Ringers 1,000 ML 200 ML IV (15:15)
[2023-04-13] MEDS: Oxytocin 10 UNITS/ML Vial IM (19:27)
[2023-04-13] MEDS: Oxytocin 15 Units/NS 250ml 15 UNITS/250 ML IV.SOLN 83 UNITS IV (19:30)
--- NOTE | 2023-04-13 19:37 | OP.PCM_ITS ---
Maternal Data Information JUWAN Calculator Estimated Delivery Date Method Current WG Current Estimate 04/20/23 Manual 39w 0d Vaginal Delivery Maternal Presentation Maternal Presentation: Medically Indicated Induction Type of Induction: Pitocin and Martini Bulb Operative Information Date of Procedure: 04/13/23 Pre-Operative Diagnosis: Induction of labor Post-Operative Diagnosis: Surgery / Procedure Performed: Spontaneous Vaginal Delivery Type of Anesthesia: Epidural Estimated Blood Loss: 300 ml Time of Delivery: 19:21 Findings Description of Procedure: Progressed to complete with urge to push. Epidural for pain management. of viable male over intact perineum. APGARS 8,9 respectively. Infant head de livered with body immediately forthcoming. Placed on maternal abdomen, strong cry. Mouth and nares suctioned for secretions. Pitocin started for active 3rd stage management. Cord doubly clamped and cut after pulsations ceased, delayed cord clamping. Placenta delivered intact via ranjana, 3 vessel cord intact. Perineum inspected and revealed intact. Fundus firm and hemostasis achieved. EBL 300ml . Mom and baby stable, planning to breastfeed. notified of delivery. Presentation: Vertex and JULIETA Amniotic Membrane Rupture Type: Artificial Amniotic Fluid Description: Clear Placental Delivery Description: Spontaneous Placenta Disposition: [facility] Cord Vessel Description: 3 Vessels Cord Entanglement: None A Gender: Male (1 minute): 8 (5 minute): 9 Delayed Cord Clamping: Yes Post Vaginal Delivery Medications Given After Delivery: IV Pitocin Episiotomy Description: None Laceration: None Complication Complications: None
[2023-04-14] VITALS (8 sets, daily range): BP systolic 119–124; BP diastolic 63–79; PULSE 70–91; RESP 16–17; TEMP 35.9–36.8; O2SAT 97–98
[2023-04-14] MEDS: Acetaminophen 500 MG Tablet 1000 MG PO (09:33)
--- NOTE | 2023-04-14 10:36 | PCM.PN.OB ---
Subjective Subjective Denies complaints Objective Data Objective Data Vital Signs: Vital Signs Temp Pulse Resp BP Pulse Ox O2 Del Method 98.3 F 86 16 120/63 97 Room Air 04/14/23 09:30 04/14/23 09:36 04/14/23 09:30 04/14/23 09:36 04/14/23 09:30 04/14/23 09:30 Oxygen Delivery Method Room Air Weight: 248 lb 7.375 oz Body Mass Index (BMI) 40.7 Intake & Output: Intake and Output for Last 24 Hours 04/12/23 04/13/23 04/14/23 23:59 23:59 23:59 Intake Total 2624.21 / 2624.21 250 / 250 Output Total 2600 / 2600 300 / 300 Balance 24. / . -50 / -50 Lab / Micro Data 04/13/23 07:42 Physical Exam Const alert, oriented x3 and no apparent distress HEENT normocephalic GI soft to palpation, non-tender and non-distended GI Narrative: fundus firm, mid & below umbilicus Extremity normal to inspection and no calf tenderness Assessment & Plan (1) Encounter for induction of labor: COMMENT: PPD#1 (2) Maternal obesity syndrome in second trimester: PLAN: Plan Routine care
[2023-04-14] MEDS: Ibuprofen 600 MG Tablet PO ×2 (11:04→19:03)
--- NOTE | 2023-04-14 19:47 | PCM.DC.SUM ---
Providers Date of Admission: 04/13/23 Primary Care Physician: Jo Ann Primary Care Phys Reason For Visit: VAGINAL Diagnosis Discharge Diagnosis (1) Encounter for induction of labor: Status: Acute Code(s): Z34.90 - Encounter for supervision of normal , unspecified, unspecified trimester (2) Maternal obesity syndrome in second trimester: Status: Acute Code(s): O99.212 - Obesity complicating , second trimester Plan Routine care Medications at Discharge Home Medications magnesium 200 mg tablet 200 mg PO BID muscle soreness 03/08/21 ascorbic acid (vitamin C) 1,000 mg tablet (C-1000) 1 g PO DAILY 03/22/23 ferrous sulfate 325 mg (65 mg iron) tablet (Feosol) 325 mg PO DAILY anemia 03/22/23 acetaminophen 500 mg tablet 1,000 mg PO Q6H PRN pain 04/13/23 ibuprofen 600 mg tablet 600 mg PO Q6H PRN PRN Pain Score 1-3 #0 tabs 04/14/23 Hospital Course Summary of Care Provided Minutes Spent on Discharge: 15 Weight / BMI Weight Weight: 248 lb 7.375 oz Body Mass Index (BMI) 40.7 ABG / Lab / Microbiology Data 04/13/23 07:42 D/C Instructions Discharge Diet: No restrictions Discharge Activity: May Shower May resume sexual activity in: 6 weeks Weight Bearing Status: Weight bearing as tolerated Call your doctor if you observe: Fever of 101 or Higher, Coldness, Increased Pain, Change in Color, Inability to urinate, Inability to have a bowel movement, Using more than 1 pad per hour, Shortness of breath, Dizziness, Fainting spells, Chest pain, Increased palpitations (irregular heartbeat), Calf discomfort and Uncontrolled pain Please Follow Up With: Pretty Waters CNM When: Follow up in 2 and 6 weeks for visits. Meaningful Use Info Meaningful Use Diagnoses (Choose all that apply): None applicable Discharge Plan Admission Admit Date/Time: 04/13/23 07:00 Primary Reason for Your Visit: vaginal delivery Attending Provider: Pretty Waters Primary Care Provider: [facility] Physician,Jo Ann Primary Instructions Forms: Information Patient Instructions: After a Vaginal Additional Instructions / Restrictions: Follow up in 2 weeks and 6 weeks Discharge Orders/Prescriptions Prescriptions: New ibuprofen 600 mg Tablet 600 mg PO Q6H PRN PRN (Reason: Pain Score 1-3) Qty: 0 0RF Continued magnesium 200 mg Tablet 200 mg PO BID acetaminophen 500 mg tablet 1,000 mg PO Q6H PRN (Reason: pain) Patient Comments: TAKE 2 TABLETS BY MOUTH EVERY 6 HOURS NEEDED FOR PAIN ascorbic acid (vitamin C) [C-1000] 1,000 mg tablet 1 g PO DAILY ferrous sulfate [Feosol] 325 mg (65 mg iron) tablet 325 mg PO DAILY Discontinued potassium 75 mg tablet 75 mg PO DAILY Referrals / Follow Up: Care Physician,No Primary [Primary Care Provider] - Disposition Disposition (needs filled in before D/C Order can be placed): Home, Self Care
[2023-04-14] MEDS: Influenza Virus Vac Quad 23-24 60 MCG/0.5 ML SYRINGE IM (20:50)
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
== END 2023-04-14 21:00 | disposition home or self-care (01) | DRG 560 ==
PROVIDERS: Admitting Provider Advanced Practice Midwife; Referring Provider Advanced Practice Midwife; Visit Provider Advanced Practice Midwife
DX: O99.214 Obesity complicating childbirth (principal); Z37.0 Single live birth; E66.9 Obesity, unspecified; Z3A.39 39 weeks gestation of pregnancy; Z87.891 Personal history of nicotine dependence
CPT/HCPCS: 59025; 59050; 85025; 86780; 86850; 86900; 86901; 99221; J7120; 90686; G0378; J2405

== ENCOUNTER 2023-04-29 16:30 | Emergency (ER) | payer MEDICAID, SELFPAY ==
[2023-04-29 16:32] VITALS: BP 125/72; PULSE 74; RESP 18; TEMP 36.3; O2SAT 98; BMI 36.9
[2023-04-29 18:05] VITALS: BP 115/78; PULSE 68; RESP 16; O2SAT 98
[2023-04-29 19:53] VITALS: BP 137/67; PULSE 67; RESP 12; O2SAT 98
--- NOTE | 2023-04-29 20:15 | CT_ITS ---
EXAM: CT HEAD WITHOUT INTRAVENOUS CONTRAST CLINICAL INDICATION: Pain TECHNIQUE: Multiple axial images were obtained of the head without intravenous contrast. This CT exam was performed using one or more of the following dose reduction techniques: automated exposure control, adjustment of the mA and/or kV according to patient size, and/or use of iterative reconstruction technique. COMPARISON: No relevant prior studies available. FINDINGS: BRAIN AND EXTRA-AXIAL SPACES: No significant abnormality. No intra- or extra-axial hemorrhage. No evidence of acute infarct. No intracranial mass or mass effect. There is preservation of the arriaga/white matter interface. Ventricles are appropriate for age. Basal cisterns are patent. BONES/JOINTS: No significant abnormality. No discrete lytic or blastic abnormalities. SINUSES: Mucosal thickening in the paranasal sinuses. MASTOID AIR CELLS: No significant effusion. ORBITS: No acute findings. CT/Brain/Head without Contrast IMPRESSION: Mucosal thickening in the paranasal sinuses. Correlate for associated symptoms. Otherwise, normal CT appearance of the head. Electronically Signed: Jose Rose DO at 20:41 EDT ,
[2023-04-29 20:18] LABS: Absolute Neutrophil Count 3.9 X10^3/uL (2.0-7.7); Basophil# 0.05 X10^3/uL; Basophil% 0.6 % (0-1); Eosinophil# 0.32 X10^3/uL; Eosinophils% 3.9 % (0-5); Hematocrit 43.5 % (37-47); Hemoglobin 13.2 g/dL (12.0-15.0); Mean Corp Hgb Conc 30.3 g/dL (32-36); Mean Corpuscular Hgb 25.4 pg (27.0-32.0); Mean Corpuscular Volume 83.8 fL (81-99); Mean Platelet Vol. 10.3 fl (6.2-12.0); Monocyte# 0.39 X10^3/uL; Monocyte% 4.8 % (0-10); NRBC Flagged by Analyzer 0 % (0-5); Neutrophil # 3.87 X10^3/uL (2.7-7.7); Neutrophil % 47.6 % (47-70); Platelet Count 312 K/mm3 (150-450); RBC Distribution Width CV 14.9 % (11.6-14.6); Red Blood Count 5.19 M/mm3 (4.2-5.4); White Blood Count 8.1 K/mm3 (4.4-11.0)
[2023-04-29 20:19] LABS: Bacteria 0 SEEN /hpf (None Seen); Color, Urine Yellow (Yellow); Glucose, Dipstick Normal (Normal); Ketone-Dipstick Negative (Negative); Leukocyte Esterase-Dipstick 100 /ul (Negative); Mucous, Urine 0 SEEN /hpf (<or=2+); Nitrite-Dipstick Negative (Negative); Occult Blood-Urine Negative /ul (Negative); Protein-Dipstick Negative (Negative); Specific Gravity, Urine 1.015 (1.002-1.030); Urine Bilirubin Dipstick Negative (Negative); Urine Clarity Clear (Clear); Urine Urobilinogen Normal (Normal); Urine pH 6.5 (5.0 - 8.0)
[2023-04-29] MEDS: DiphenhydrAMINE 50 MG/ML Syringe 25 MG IV (20:24)
[2023-04-29] MEDS: 0.9% Normal Saline (1000mL) 1,000 ML 999 ML IV (20:24)
[2023-04-29] MEDS: Metoclopramide 10 MG/2 ML Vial IV (20:24)
[2023-04-29 20:26] LABS: Red Blood Cells-Urine 0-5 SEEN /hpf (0-5); Squamous Epithelial Cells - UA 0-5 SEEN /hpf (5-10); White Blood Cells 0-5 SEEN /hpf (0-5)
[2023-04-29 20:34] LABS: ALB/GLOB Ratio 0.8 RATIO (0.9-2.4); AST(SGOT) 20 U/L (15-37); Alanine Aminotransfer ALT/SGPT 24 U/L (13-56); Albumin, Serum 3.1 g/dL (3.2-5.0); Alkaline Phosphatase 152 U/L (45-117); Anion Gap 6 (5-15); BUN 20 mg/dL (7-18); BUN/Creat Ratio 26.4 RATIO (10-20); Calcium,Total 8.7 mg/dL (8.5-10.1); Chloride 107 mmol/L (98-107); Creatinine, Serum 0.76 mg/dL (0.55-1.02); EST Glomerular Filtration Rate 95 mL/min (>60); Est Glom Filt Rate - Afr Amer 115 mL/min (>60); Estimated Creatinine Clearance 98.28 ml/min; Globulin 4.1 g/dL (2.2-4.2); Glucose 82 mg/dL (74-106); Potassium 4.1 mmol/L (3.5-5.1); Protein, Total 7.2 g/dL (6.4-8.2); Sodium Level 141 mmol/L (136-145)
[2023-04-29 21:00] VITALS: BP 107/55; PULSE 60; RESP 12; O2SAT 99
[2023-04-29] MEDS: Ketorolac 15 MG/ML Vial IV (22:06)
[2023-04-29 22:07] VITALS: BP 111/63; PULSE 62; RESP 12; O2SAT 98
--- NOTE | 2023-04-29 22:25 | EX.ED.VIS.HA ---
HPI History of Present Illness Chief Complaint: Headache Narrative Narrative: 27-year-old female presenting with headache. She states that started about 24 hours after she delivered. She had anesthesia in the form of an epidural prior to this. Vaginal delivery at [facility] and this was on the ninth of this month. She states has had a headache pain since then. She never told me but it when she was in the hospital that she had a headache. States that getting up and walking makes it worse. She states that it makes her feel like she is lightheaded. No fevers or chills. She has some mild nausea. No history of migraines in the past. She states her mother has history of migraines and has the several days a week. Patient denies any head trauma. She did call her KENO CLERK who sent her in to be evaluated for preeclampsia. [facility] Medical History ADD (attention deficit disorder) Anemia Anxiety Asthma Bipolar 2 disorder Chlamydia infection affecting Depression Normal vaginal delivery Post traumatic stress disorder (PTSD) depression Superficial varicosities Home Medications magnesium 200 mg tablet 200 mg PO BID muscle soreness 03/08/21 [History Last Taken 03/17/21] ascorbic acid (vitamin C) 1,000 mg tablet (C-1000) 1 g PO DAILY 03/22/23 [History Last Taken Unknown] ferrous sulfate 325 mg (65 mg iron) tablet (Feosol) 325 mg PO DAILY anemia 03/22/23 [History Last Taken Unknown] acetaminophen 500 mg tablet 1,000 mg PO Q6H PRN pain 04/13/23 [History Last Taken Unknown] ibuprofen 600 mg tablet 600 mg PO Q6H PRN PRN Pain Score 1-3 #0 tabs 04/14/23 [Rx Last Taken Unknown] butalbital 50 mg-acetaminophen 300 mg tablet 1 tab PO Q6H PRN pain #12 tabs 04/29/23 [Rx Last Taken Unknown] Allergy/AdvReac Type Severity Reaction Status Date / Time tuberculin, purified protein Allergy Intermediate Rash Verified 04/29/23 16:32 deriva Bleach (Sodium Hypochlorite) Allergy Hives Verified 04/29/23 16:32 navy jorge Allergy Pain in Verified 04/29/23 16:32 joints vitamins with Allergy Hives Verified 04/29/23 16:32 calcium no.78 [From Prenatabs FA] vancomycin Allergy Rash Verified 04/29/23 16:32 Surgical History Hx of tonsillectomy Social History Smoking Status: Former smoker ROS ROS ED Constitutional Constitutional ED: Denies chills, fever(s) or sweats Eyes Eyes: Reports other Details: Light sensitivity ; Denies blurry vision or change in vision ENT ENT ED: Reports other Details: Sound sensitivity ; Denies ear pain or sore throat Cardiovascular Cardiovascular: Denies chest pain, palpitations or racing heartbeat Respiratory/Chest Respiratory/Chest: Denies cough, dyspnea or sputum Gastrointestinal Gastrointestinal: Denies abdominal pain, constipation, diarrhea, nausea or vomiting Genitourinary Genitourinary ED: Denies dysuria, hematuria or urinary frequency Musculoskeletal Musculoskeletal: Denies arthralgias, myalgias or neck pain Integumentary Denies abscess, Abrasions or rash Neurologic Neurologic: Reports headache(s); Denies paresthesias or weakness Psychiatric Psychiatric: Denies anxiety, depression, suicidal ideation or suicidal thoughts Endocrine Endocrinology: Denies polydipsia or polyuria EXAM Physical Exam Const Vital Signs: 04/29/23 16:32 04/29/23 18:05 04/29/23 19:53 Temperature 97.4 F L Temperature Source Temporal Pulse Rate 74 68 67 Respiratory Rate 18 16 12 Blood Pressure 125/72 H 115/78 137/67 H Blood Pressure Mean 89 90 90 Pulse Ox 98 98 98 Oxygen Delivery Method Room Air Room Air Room Air 04/29/23 21:00 04/29/23 22:07 Temperature Temperature Source Pulse Rate 60 62 Respiratory Rate 12 12 Blood Pressure 107/55 L 111/63 Blood Pressure Mean 72 79 Pulse Ox 99 98 Oxygen Delivery Method Room Air Positive well nourished General Appearance ED: NAD; Negative for pallor HEENT Reports normocephalic and TM's clear Tympanic Membrane ED: Yes TM's clear Eyes PERRL and EOMs intact bilaterally Resp normal respiratory effort Auscultation: Negative for rales, rhonchi or wheezes Cardio regular rate and regular rhythm Extremity normal to inspection Neuro oriented x3, CN's II-XII intact bilaterally and no sensory deficits noted Sensorium / Orientation: awake and alert Motor Exam: strength 5/5 throughout Psych mental status grossly normal Skin General Skin Exam: Negative for jaundice or pallor MDM MDM MDM Narrative Medical decision making narrative: 27-year-old female with headache. She was sent in to be evaluated for preeclampsia although her blood pressure is 125/72 and after resting it is 111/63. I think more likely she has a spinal headache after she had the epidural anesthesia. I spoke with anesthesia who stated at this point that its outside the timeframe it would be helpful for blood patch. I did obtain basic lab work which included CBC and CMP which were both normal. Urinalysis was negative. CT brain was obtained and is also negative. Patient treated with Reglan, Benadryl with good relief of her headache pain and after her CT was negative we could give her Toradol. Anesthesia recommended giving her Fioricet which they would normally give to patients who had continued headache pain. Patient discharged stable condition. Impression: 1. Spinal headache Lab Data Labs: Laboratory Results - last 24 hr 04/29/23 04/29/23 19:54 20:15 WBC 8.1 RBC 5.19 Hgb 13.2 Hct 43.5 MCV 83.8 MCH 25.4 L MCHC 30.3 L RDW Std Deviation 45.0 H RDW Coeff of Mirella 14.9 H Plt Count 312 MPV 10.3 Immature Gran % (Auto) 0.100 Neut % (Auto) 47.6 Lymph % (Auto) 43.0 H [place] % (Auto) 4.8 Eos % (Auto) 3.9 Baso % (Auto) 0.6 Absolute Neuts (auto) 3.9 Absolute Lymphs (auto) 3.50 Nucleated RBC % 0 Sodium 141 Potassium 4.1 Chloride 107 Carbon Dioxide 28.0 Anion Gap 6 BUN 20 H Creatinine 0.76 Estim Creat Clear Calc 98.28 Est GFR (MDRD) Af Amer 115 Est GFR (MDRD) Non-Af 95 BUN/Creatinine Ratio 26.4 H Glucose 82 Calcium 8.7 Total Bilirubin 0.20 AST 20 ALT 24 Alkaline Phosphatase 152 H Total Protein 7.2 Albumin 3.1 L Globulin 4.1 Albumin/Globulin Ratio 0.8 L Urine Color Yellow Urine Clarity Clear Urine pH 6.5 Ur Specific [place] 1.015 Urine Protein Negative Urine Glucose (UA) Normal Urine Ketones Negative Urine Occult Blood Negative Urine Nitrite Negative Urine Bilirubin Negative Urine Urobilinogen Normal Ur Leukocyte Esterase 100 H Urine RBC 0-5 SEEN Urine WBC 0-5 SEEN Ur Squamous Epith Cells 0-5 SEEN Urine Bacteria 0 SEEN Urine Mucus 0 SEEN Radiography Diagnostic Testing: Clinical Impression(s) from Imaging Studies Brain CT 04/29/23 20:15 IMPRESSION: Mucosal thickening in the paranasal sinuses. Correlate for associated symptoms. Otherwise, normal CT appearance of the head. Electronically Signed: Jose Rose DO at 20:41 EDT , Discharge Plan Triage Chief Complaint: Headache ED Provider: Vinny Prater Dx/Rx/DC Orders Instructions: ED Headache After Spinal Tap ... Prescriptions: New butalbital-acetaminophen 50-300 mg tablet 1 tab PO Q6H PRN (Reason: pain) Qty: 12 0RF No Action magnesium 200 mg Tablet 200 mg PO BID acetaminophen 500 mg tablet 1,000 mg PO Q6H PRN (Reason: pain) Patient Comments: TAKE 2 TABLETS BY MOUTH EVERY 6 HOURS NEEDED FOR PAIN ibuprofen 600 mg Tablet 600 mg PO Q6H PRN PRN (Reason: Pain Score 1-3) Qty: 0 0RF ascorbic acid (vitamin C) [C-1000] 1,000 mg tablet 1 g PO DAILY ferrous sulfate [Feosol] 325 mg (65 mg iron) tablet 325 mg PO DAILY Primary Care Provider: Alex Abbasi Referrals: Alex Abbasi MD [Primary Care Provider] - Disposition Disposition: Home, Self Care Discharge Date/Time: 04/29/23 22:12
== END 2023-04-29 22:12 | disposition home or self-care (01) ==
PROVIDERS: Emergency Provider Student in an Organized Health Care Education/Training Program; PCP Family Medicine; Visit Provider Student in an Organized Health Care Education/Training Program
DX: O89.4 Spinal and epidural anesthesia-induced headache during the puerperium (principal); F31.81 Bipolar II disorder; G97.1 Other reaction to spinal and lumbar puncture; R11.0 Nausea; O99.345 Other mental disorders complicating the puerperium; Z87.891 Personal history of nicotine dependence
CPT/HCPCS: 70450; 80053; 81001; 85025; 96361; 96374; 96375; 99283; J7030

== ENCOUNTER 2023-06-11 09:02 | Day surgery (SDC) | payer MEDICAID, SELFPAY ==
--- NOTE | 2023-06-09 08:13 | PCM.HP.BLA ---
History and Physical Date of Admission: 06/11/23 Pre-Op History and Physical ? HPI: The patient is a 27 year old female presenting for pre-operative visit. She is scheduled for laparoscopic Bilateral salpingectomy, for desires sterilization on 06/11/23. Procedure discussed along with risks, benefits and complications. Other alternatives discussed for management. Consent form signed? Yes. ? ? PAST MEDICAL HISTORY PAST MEDICAL HISTORY Diagnosis Date ? ADD (attention deficit disorder) ? ? Anemia ? ? Asthma ? ? Bipolar disorder (HCC) ? ? Chlamydia infection complicating 11/03/2014 ? depression ? ? Trauma ? ? ? PAST SURGICAL HISTORY PAST SURGICAL HISTORY Procedure Laterality Date ? NEXPLANON INSERTION ? 07/19/2015 ? RR- removed 2019 ? TONSILLECTOMY HX ? CURRENT MEDICATIONS Current Outpatient Medications Medication Sig Dispense Refill ? ferrous sulfate (IRON ORAL) Take by mouth. ? ? ? POTASSIUM ORAL Take by mouth. ? ? ? ascorbic acid (VITAMIN C ORAL) Take by mouth. ? ? ? Magnesium Oxide 420 mg tab Take 1 tablet by mouth once daily. 100 tablet 2 ? acetaminophen (TYLENOL EXTRA STRENGTH) 500 mg tablet Take 2 tablets by mouth every 6 hours as needed for pain. FOR PAIN. 100 tablet 2 ? No current facility-administered medications for this visit. ? ? ALLERGIES: Bleach (Sodium Hypochlorite), Starbrick Beans, Tablet [ Vit-Iron Fum-Folic Ac], Sclavo-Ppd (Mantoux) Test, and Vancomycin ? PERSONAL HISTORY: SOCIAL HISTORY Social History ? Tobacco Use ? Smoking status: Every Day ? ? Packs/day: 0.50 ? ? Years: 16.00 ? ? Additional pack years: 0.00 ? ? Total pack years: 8.00 ? ? Types: Cigarettes ? Smokeless tobacco: Never Vaping Use ? Vaping Use: current everyday user ? Substances: Nicotine Substance Use Topics ? Alcohol use: Not Currently ? ? Alcohol/week: 13.0 standard drinks of alcohol ? ? Types: 10 Mixed Drinks per week ? ? Comment: drinking jumana bottle per week ? Drug use: Not Currently ? ? Comment: took mothers valium at age 16 ? FAMILY HISTORY: FAMILY HISTORY FAMILY HISTORY Problem Relation Age of Onset ? Hypertension Mother ? ? Heart Father ? ? Hypertension Father ? ? Cancer Father ? ? Seizures Sister ? ? other (anemia) Sister ? ? other (ovarian cysts) Sister ? ? Schizophrenia Sister ? ? other (anemia) Sister ? ? Hypoglycemia Sister ? ? No Known Problems Sister ? ? Heart Attack Brother ? ? Psychiatry Brother ? ? Psychiatry Brother ? ? No Known Problems Brother ? ? Heart Maternal Grandmother ? ? No Known Problems Paternal Grandmother ? ? No Known Problems Paternal Grandfather ? ? No Known Problems Son ? ? No Known Problems Son ? ? ? REVIEW OF SYMPTOMS: negative except as noted above PHYSICAL EXAMINATION: ? VITALS: Last menstrual period 07/14/2022, currently . ? GENERAL: The patient is well nourished, well hydrated in no acute distress. , The patient is oriented to time, place, and person. NECK: full range LUNGS: Clear to auscultation bilaterally. no wheezes, rhonchi or rales HEART: Regular rate and rhythm, Normal heart sounds, and No murmurs or gallops ? ? IMPRESSION: 27yo female desires permanent sterilization ? PLAN: Laparoscopic bilateral salpingectomy ? Pt has been counseled on risks/benefits and alternatives of surgery including but not limited to anesthesia, bleeding, infection, injury to pelvic structures including bowel, bladder, ureters and vessels. Pt wishes to proceed with surgery at this time. Title 19 previously signed. Pre and post op instructions reviewed. ? I have reviewed and updated past medical and surgical history, medications and allergies Yasmeen Vazquez MD Office Visit on 05/29/2023 Office Visit on 05/29/2023 Note shared with patient
[2023-06-11] VITALS (8 sets, daily range): BP systolic 106–138; BP diastolic 60–101; PULSE 52–87; RESP 17–18; TEMP 36.5–37.6; O2SAT 95–100; BMI 38.5
--- NOTE | 2023-06-11 | FALS_PTH ---
PATIENT: REGINALD CESPEDES LOC: [facility] [place] U#:[id number] AGE/SX: 27/F ROOM: RE06/11/[address]: Dr. Yasmeen Eisenberg, MDDOB: 1995 BED: DIS: 06/11/2023 SPEC #: [id number] RECD: 06/11/23 15:27 STATUS: SETH LIZZETTE #: [id number] ALVARADO: 06/11/23 00:[address]: Yasmeen Eisenberg DEPT: SURGICAL PATHOLOGY RECD BY: Lance Sylvester ENTERED: 06/12/23 08:43 SP TYPE: FALL TUBES OTHR DR: Dr. Alex Abbasi MD Tissues: Fallopian tube Procedures: Surgery Specimen Level II HEADER OPERATION: Laparoscopic salpingectomy PRE-OP DIAGNOSIS: Elective sterilization TISSUE SUBMITTED: Bilateral fallopian tubes MICROSCOPIC DIAGNOSIS Right and left fallopian tubes, bilateral salpingectomies: Complete cross-sections of two fallopian tubes with benign paratubal cysts. AM:kenyon 06/15/2023 MICROSCOPIC DESCRIPTION Slides are reviewed. GROSS DESCRIPTION Received in fixative is one container labeled with the patient's name and designated bilateral fallopian tubes. The specimen consists of two fallopian tubes with an average length of 8.0 cm and has an average diameter of 0.8 cm. Both fallopian tubes have normal fimbriated ends. One fallopian tube is received in two fragments. No mass lesions are identified. Thermoforming Operator sections are submitted in two cassettes as follows: 1 - one fallopian tube, 2 - the other fallopian tube. / AM:ken[place] 06/12/2023 TC:5 CPT: 16609 x2
[2023-06-11 09:28] LABS: Internal QC Validated? YES +Cl - CLEAR BKGD; Pregnancy, Urine Negative Negative; Record Kit Lot#,Urine Preg HCG0000667200
[2023-06-11] MEDS: Lactated Ringers 1,000 ML 15 ML IV (09:38)
[2023-06-11 09:52] LABS: Partial Thromboplast Time 27.3 Seconds (24.1-36.2)
--- NOTE | 2023-06-11 10:06 | EKG12_ITS ---
Test Reason : PREOP Blood Pressure : / mmHG Vent. Rate : 064 BPM Atrial Rate : 064 BPM P-R Int : 130 ms QRS Dur : 098 ms QT Int : 460 ms P-R-T Axes : 059 077 060 degrees QTc Int : 474 ms Normal sinus rhythm Normal ECG When compared with ECG of 02-DEC-2017 20:06, No significant change was found Confirmed by SADAF DUMONT, TIFFANIE ([id number]), advertising editor DARY AVALOS ([id number]) on 06/16/2023 8:50:15 A M Referred By: Yasmeen Eisenberg Confirmed By:APOLLO TALAVERA MD
[2023-06-11] MEDS: Bupivacaine 0.5% PF 10 ML VIAL (11:00)
--- NOTE | 2023-06-11 11:27 | PCM.OPRPT ---
Report of Operation Date of Procedure: 06/11/23 Pre-Operative Diagnosis: desires sterilization Post-Operative Diagnosis: Same Surgery/Procedure Performed:: Laparoscopic bilateral salpingectomy Description of Surgical Findings:: Normal tubes and ovaries. Uterus normal. Surgeon: Yasmeen Eisenberg lamination spinner: None (Marian Polk MS3) Type of Anesthesia: General and Local Special Medications: 0.5% marcaine Specimen's removed: bilateral fallopian tubes Estimated Blood Loss (mL): <5 Fluids Replaced: 500cc Description of Procedure: After informed consent was obtained patient was taken to the operating room she was placed in supine position she was given anesthesia. She was then placed in the [facility] stirrups and she was prepped and draped in normal sterile fashion. Bladder was drained prior to the start of procedure. At this time attention was turned to the vaginal portion where weighted speculum placed at posterior fornix vagina single-tooth tenaculum was used to gently grasp the internal the cervix. uterus was gently sounded to approximately 8cm. Uterine manipulator was placed without difficulty. Legs then placed in parallel with the abdomen the tenaculum and the weighted speculum were removed. 2 towel clamps were placed at level of umbilicus. Marcaine was injected infraumbilical and a small incision was made. The 5 mm trocar was placed under direct visualization. CO2 gas was used to insufflate the intra-abdominal cavity. Upon inspection no gross abnormalities appreciated- the uterus tubes and ovaries appeared to be normal. At this time then the LLQ and RLQ ports were placed First Marcaine was injected and small incision was made a knife and the 5 mm trocars were placed. At this time then tubes were traced back to the fimbriated ends. Enseal was used to coagulate and ligate along mesosalpinx bilaterally until tubes removed completely. Good hemostasis was appreciated. At this time procedure was deemed complete successful. The gas was desufflated on from the intra-abdominal cavity. The trochars were removed. Skin was closed using 4-0 Monocryl in a subcutaneous fashion. Dermabond glue was placed. Instrument lap and needle counts were correct ?2. The uterine manipulator was removed. Vaginal sweep was performed it was negative. There were no complications anticipated normal postoperative course for this patient. Grafts/Implants Used: none Procedure Start Time: 10:58 Procedure Stop Time: 11:26 Complications none Admit VTE Documentation VTE Present on Admission: Yes VTE Mechan Device Prophylaxis: SCD's VTE Pharm Prophylaxis ordered?: No Reason prophylaxis not ordered:: Procedure Not Indicated
--- NOTE | 2023-06-11 11:30 | DCINST_ITS ---
Discharge Instructions Diet Discharge Diet: No restrictions Activity May resume sexual activity in: 2 weeks Lifting Restrictions: 20-25 lbs Dressing / Incision Call your doctor if your incision/area has: Continuous Slow Oozing, Sudden Increased Bleeding, Increased Pain/ Swelling, Increased Redness, Foul Smelling Discharge and Swelling at the incision site Call your doctor if you observe: Fever of 101 or Higher, Inability to urinate, Inability to have a bowel movement, Using more than 1 pad per hour and Uncontrolled pain Additional Dressing/Incision Instructions:: You have skin glue over your incision sites, do not pick off. You may shower and let the soap and water run over the incision sites and dab dry. Follow Up Care Please Follow Up With: Yasmeen Eisenberg MD When: 1-2 weeks post OP if you need an appointment please call [phone] Test Results: Test results from this visit will be discussed in further detail at your follow- up appointment, if applicable. Discharge Plan Admission Attending Provider: Yasmeen Eisenberg Primary Care Provider: Alex Abbasi Discharge Orders/Prescriptions Prescriptions: No Action magnesium 200 mg Tablet 200 mg PO BID acetaminophen 500 mg tablet 1,000 mg PO Q6H PRN (Reason: pain) Patient Comments: TAKE 2 TABLETS BY MOUTH EVERY 6 HOURS NEEDED FOR PAIN ascorbic acid (vitamin C) [C-1000] 1,000 mg tablet 1 g PO DAILY ferrous sulfate [Feosol] 325 mg (65 mg iron) tablet 325 mg PO DAILY Referrals / Follow Up: Alex Abbasi MD [Primary Care Provider] - Disposition Disposition (needs filled in before D/C Order can be placed): Home, Self Care
[2023-06-11] MEDS: Oxycodone/Apap 5/325 Tablet PO (13:04)
== END 2023-06-11 14:01 | disposition home or self-care (01) ==
LOC: SDC 09:04 → AC 09:04
PROVIDERS: Anesthesiology; PCP Family Medicine; Referring Provider Obstetrics & Gynecology; Visit Provider Obstetrics & Gynecology
PROC: (CPT 58661; principal; 2023-06-11 10:35)
DX: Z30.2 Encounter for sterilization (principal); F17.210 Nicotine dependence, cigarettes, uncomplicated; J45.909 Unspecified asthma, uncomplicated; N83.8 Other noninflammatory disorders of ovary, fallopian tube and broad ligament
CPT/HCPCS: 58661; 00840; 81025; 85610; 85730; 88302; 93005; J7120; C1760; J2405

== ENCOUNTER 2023-07-17 12:07 | Emergency (ER) | payer MEDICAID, SELFPAY ==
[2023-07-17 12:07] VITALS: BP 132/84; PULSE 59; RESP 24; TEMP 35.9; O2SAT 100; BMI 38.2
--- NOTE | 2023-07-17 12:20 | RAD_ITS ---
STUDY: X-RAY CHEST REASON FOR EXAM: Female, 28 years old. SOB TECHNIQUE: Single AP portable view of the chest. COMPARISON: Comparison is made with prior study dated December 02, 2017. FINDINGS: The lungs are clear and expanded. There is no demonstrated pleural abnormality. Normal size heart. Normal mediastinum and aleksander. Normal visualized pulmonary arteries. Normal visualized aortic arch and descending thoracic aorta. Normal visualized thoracic spine. Normal visualized ribs, clavicles, and shoulders. There is no demonstrated abnormality of the visualized soft tissue structures of the upper abdomen. RAD/Chest 1 View (Portable) IMPRESSION: Normal x-ray examination of the chest. Electronically Signed: Keanu Hinds MD at 12:37 EST ,
--- NOTE | 2023-07-17 13:15 | ED.VIS.DYS ---
HPI History of Present Illness Chief Complaint: Shortness of Breath Informant: patient Onset/Context/Timing Onset: Weeks (3 weeks) Narrative Narrative: Patient presents with 3-week history of cough and shortness of breath. She is bringing up some yellow mucus. No fever noted. Patient does have a history of asthma but states she was told she should not use her albuterol inhaler as she just recently (4 weeks ago) started taking propranolol. Patient has been taking Delsym as well as Mucinex [id number]. [facility] Medical History ADD (attention deficit disorder) Alcohol use Anemia Anxiety Asthma Back pain Bipolar 2 disorder Chlamydia infection affecting Depression Easy bruising Former smoker Gastric reflux History of irregular heartbeat Injury of back Marijuana use Normal vaginal delivery Post traumatic stress disorder (PTSD) Syncope Home Medications magnesium 200 mg tablet 200 mg PO BID muscle soreness 03/08/21 [History Last Taken 06/10/23] ascorbic acid (vitamin C) 1,000 mg tablet (C-1000) 1 g PO DAILY 03/22/23 [History Last Taken 06/10/23] ferrous sulfate 325 mg (65 mg iron) tablet (Feosol) 325 mg PO DAILY anemia 03/22/23 [History Last Taken 06/10/23] acetaminophen 500 mg tablet 1,000 mg PO Q6H PRN pain 04/13/23 [History Last Taken Unknown] albuterol sulfate 90 mcg/actuation aerosol inhaler (Ventolin HFA) 2 puff inhalation Q4H PRN PRN Wheezing ##1 07/17/23 [Rx Last Taken Unknown] prednisone 20 mg tablet 40 mg (2 x 20 mg) PO DAILY #8 tabs 07/17/23 [Rx Last Taken Unknown] Allergy/AdvReac Type Severity Reaction Status Date / Time tuberculin, purified protein Allergy Intermediate Rash Verified 07/17/23 12:09 deriva Bleach (Sodium Hypochlorite) Allergy Hives Verified 07/17/23 12:09 navy jorge Allergy Pain in Verified 07/17/23 12:09 joints vitamins with Allergy Hives Verified 07/17/23 12:09 calcium no.78 [From Prenatabs FA] vancomycin Allergy Rash Verified 07/17/23 12:09 Surgical History History of dental surgery Hx of tonsillectomy Social History Smoking Status: Former smoker ROS ROS ED Constitutional Constitutional ED: Denies chills or fever(s) Eyes Eyes: Denies change in vision or discharge from eye(s) ENT ENT ED: Denies discharge from eye(s), rhinorrhea or sore throat Cardiovascular Cardiovascular: Denies chest pain or palpitations Respiratory/Chest Respiratory/Chest: Reports cough, dyspnea and sputum Gastrointestinal Gastrointestinal: Denies abdominal pain, nausea or vomiting Genitourinary Genitourinary ED: Denies dysuria Musculoskeletal Musculoskeletal: Denies back pain or extremity pain Integumentary Denies Abrasions or rash Neurologic Neurologic: Denies headache(s) or weakness Psychiatric Psychiatric: Denies anxiety or depression Allergic/Immunologic Allergic/Immunologic ED: Denies lip swelling or urticaria EXAM Physical Exam Const Vital Signs: 07/17/23 12:07 07/17/23 13:26 07/17/23 13:26 Temperature 96.6 F L Temperature Source Temporal Pulse Rate 59 L Respiratory Rate 24 H Respiratory Effort Short of Breath Blood Pressure 132/84 H Blood Pressure Mean 100 Pulse Ox 100 99 Oxygen Delivery Method Room Air Room Air Room Air 07/17/23 13:26 07/17/23 13:58 07/17/23 14:22 Temperature Temperature Source Pulse Rate 66 59 L Respiratory Rate 20 H 18 Respiratory Effort Blood Pressure Blood Pressure Mean Pulse Ox 100 Oxygen Delivery Method Room Air 07/17/23 14:22 07/17/23 15:32 Temperature Temperature Source Pulse Rate 65 78 Respiratory Rate 18 18 Respiratory Effort Blood Pressure Blood Pressure Mean Pulse Ox Oxygen Delivery Method Positive well nourished and well developed General Appearance ED: well developed HEENT Reports moist mucous membranes Eyes EOMs intact bilaterally Resp Resp Narrative: Expiratory wheezes bilaterally. Cardio regular rate and regular rhythm GI non-tender Palpation: soft Extremity normal to inspection Neuro oriented x3 and no sensory deficits noted Motor Exam: strength 5/5 throughout Psych mental status grossly normal Skin no wounds Rashes: no rashes MDM MDM MDM Narrative Medical decision making narrative: Patient had swab for COVID, influenza, and RSV obtained per nursing protocol along with chest x-ray. Swab is negative. Portable chest x-ray per my interpretation was no focal infiltrate. Radiology interpretation reviewed and agrees. At time of my exam patient given p.o. prednisone and a DuoNeb treatment. After the DuoNeb treatment patient continued to have bilateral wheezes. Heart rate was normal. She was given 2 additional albuterol treatments. On repeat evaluation she still had expiratory wheezes bilaterally, but significantly improved air movement bilaterally. Additional round of aerosols is given. At this time lungs are coarse bilaterally but she has good air movement. She will be given a new prescription for albuterol inhaler along with prednisone. I do not feel she needs antibiotics. Radiography Diagnostic Testing: Clinical Impression(s) from Imaging Studies Chest X-Ray 07/17/23 12:20 IMPRESSION: Normal x-ray examination of the chest. Electronically Signed: Keanu Hinds MD at 12:37 EST Reading Location ID and State: [facility] / [place] , Service support , Discharge Plan Triage Chief Complaint: Shortness of Breath ED Provider: Namita Linton Dx/Rx/DC Orders Clinical Impression: Asthma exacerbation, Viral URI Instructions: ED Asthma, Acute (Adult), ED URI, Viral, No Abx (Adult) Prescriptions: New albuterol sulfate [Ventolin HFA] 90 mcg/actuation HFA aerosol inhaler 2 puff inhalation Q4H PRN PRN (Reason: Wheezing) Qty: 1 0RF prednisone 20 mg tablet 40 mg PO DAILY Qty: 8 0RF No Action magnesium 200 mg Tablet 200 mg PO BID acetaminophen 500 mg tablet 1,000 mg PO Q6H PRN (Reason: pain) Patient Comments: TAKE 2 TABLETS BY MOUTH EVERY 6 HOURS NEEDED FOR PAIN ascorbic acid (vitamin C) [C-1000] 1,000 mg tablet 1 g PO DAILY ferrous sulfate [Feosol] 325 mg (65 mg iron) tablet 325 mg PO DAILY Stand Alone Forms: ED Work / School Excuse Primary Care Provider: Alex Abbasi Referrals: Alex Abbasi MD [Primary Care Provider] - 3-5 Days if not improving Disposition Disposition: Home, Self Care
[2023-07-17] MEDS: predniSONE 20 MG Tablet 60 MG PO (13:21)
[2023-07-17] MEDS: Ipratropium/Albuterol Sulfate 3 ML AMPUL.NEB INHALATION ×2 (13:25→15:21)
[2023-07-17 13:26] VITALS: PULSE 66; RESP 20; O2SAT 99
[2023-07-17] MEDS: Albuterol 2.5 MG/3 ML VIAL.NEB. INHALATION ×3 (13:57→15:32)
[2023-07-17 13:58] VITALS: PULSE 59; RESP 18
[2023-07-17 14:22] VITALS: PULSE 65; RESP 18; O2SAT 100
[2023-07-17 15:32] VITALS: PULSE 78; RESP 18
[2023-07-17 16:11] VITALS: PULSE 62; RESP 20
== END 2023-07-17 16:11 | disposition home or self-care (01) ==
PROVIDERS: Emergency Provider Emergency Medicine; PCP Family Medicine; Visit Provider Emergency Medicine
DX: J45.901 Unspecified asthma with (acute) exacerbation (principal); J06.9 Acute upper respiratory infection, unspecified; Z79.899 Other long term (current) drug therapy; Z87.891 Personal history of nicotine dependence
CPT/HCPCS: 71045; 87631; 94640; 99282

== ENCOUNTER 2023-09-17 11:35 | Emergency (ER) | payer MEDICAID, SELFPAY ==
[2023-09-17] VITALS (10 sets, daily range): BP systolic 92–129; BP diastolic 55–88; PULSE 58–92; RESP 14–18; TEMP 36.1–37.3; O2SAT 97–100; BMI 36.4
--- NOTE | 2023-09-17 11:42 | ED.RN ---
PER DR MAHER CALL STROKE, HE HAS NOT EVALUATED PT.
--- NOTE | 2023-09-17 11:43 | ED.RN ---
STROKE ALERT CALLED. DR. KELLY IN TRIAGE EVALUATING PT.
--- NOTE | 2023-09-17 11:45 | ED.RN ---
AFTER STROKE ALERT CALLED, DR. KELLY IN TRIAGE EVALUATING PT.
--- NOTE | 2023-09-17 11:47 | ED.RN ---
DR KELLY STILL EVALUAING PT IN TRIAGE.
--- NOTE | 2023-09-17 11:50 | RAD_ITS ---
EXAM: XR CHEST, 1 VIEW CLINICAL INDICATION: Neuro deficit, acute, stroke suspected TECHNIQUE: Frontal view of the chest. COMPARISON: XR Chest dated 07/17/2023 FINDINGS: LUNGS AND PLEURAL SPACES: Normal. No consolidation or edema. No pneumothorax. No effusion. HEART: Normal heart size. MEDIASTINUM: No mediastinal or hilar mass. BONES/JOINTS: No acute abnormality. RAD/Chest 1 View IMPRESSION: No acute cardiopulmonary abnormality. No interval change. Electronically Signed: Spencer Anthony MD at 13:45 EDT ,
--- NOTE | 2023-09-17 11:50 | CT_ITS ---
We are attempting to reach an attending provider to discuss findings. An addendum with communication details will be sent when the communication is complete. EXAM: CT HEAD WITHOUT INTRAVENOUS CONTRAST CLINICAL INDICATION: Neuro deficit, acute, stroke suspected TECHNIQUE: Multiple axial images were obtained of the head without intravenous contrast. This CT exam was performed using one or more of the following dose reduction techniques: automated exposure control, adjustment of the mA and/or kV according to patient size, and/or use of iterative reconstruction technique. COMPARISON: No relevant prior studies available. FINDINGS: BRAIN AND EXTRA-AXIAL SPACES: Normal. Normal brain attenuation. No intra- or extra-axial hemorrhage. No acute infarct. No intracranial mass or mass effect. There is preservation of the arriaga/white matter interface. Posterior fossa structures are unremarkable. Ventricles are appropriate for age. No hydrocephalus. Basal cisterns are patent. BONES/JOINTS: Normal calvarium. SINUSES: Diffuse opacification of the paranasal sinuses. MASTOID AIR CELLS: Normal. Clear. CT/STROKE Brain/Head without Cont IMPRESSION: 1. No acute intracranial abnormality. 2. Paranasal sinusitis. Aspect score 10. Electronically Signed: Spencer Anthony MD at 12:14 EDT ,
--- NOTE | 2023-09-17 11:51 | EDS_ITS ---
HPI History of Present Illness Chief Complaint: Neuro S/Sx Informant: patient Onset/Context/Timing Onset: Today Context: Sudden Onset Timing: Continuous (But improving) Onset: 11 AM (approximately 30 minutes prior to arrival) Worsened by: Nothing Relieved by: Nothing Associated Symptoms Associated Symptoms: Positive for Headache; Negative for Nausea, Vomiting or Chest Pain Narrative Narrative: Patient presents with stroke symptoms that began today. Patient states it came on rather suddenly approximately 30 minutes prior to arrival. Patient states that she had some visual changes with the left side of her vision was blurry. Patient describes it as like looking through water . Patient admits to a headache. Patient denies any weakness of her extremities. Patient denies any paresthesias. Patient denies any difficulty talking or difficulty swallowing. Patient denies any recent fevers or chills. Patient admits to recent rhinorrhea. Patient also states that she recently stopped taking her Adderall yesterday. [facility] Medical History ADD (attention deficit disorder) Alcohol use Anemia Anxiety Asthma Back pain Chlamydia infection affecting Depression Easy bruising Former smoker Gastric reflux History of irregular heartbeat Injury of back Marijuana use Normal vaginal delivery Post traumatic stress disorder (PTSD) Syncope Home Medications acetaminophen 500 mg tablet 1,000 mg PO Q6H PRN pain 04/13/23 [History Last Taken Unknown] albuterol sulfate 90 mcg/actuation aerosol inhaler (Ventolin HFA) 2 puff inhalation Q4H PRN Wheezing 09/17/23 [History Last Taken Unknown] fluoxetine 40 mg capsule 40 mg PO DAILY 09/17/23 [History Last Taken 09/17/23] guanfacine 1 mg tablet,extended release 24 hr 1 mg PO DAILY 09/17/23 [History Last Taken Unknown] propranolol 20 mg tablet 20 mg PO BID 09/17/23 [History Last Taken Unknown] sodium chloride 0.65 % nasal spray aerosol (Saline Nasal) 1 spray intranasal DAILY PRN nasal congestion 09/17/23 [History Last Taken Unknown] Allergy/AdvReac Type Severity Reaction Status Date / Time tuberculin, purified protein Allergy Intermediate Rash Verified 09/17/23 11:36 deriva Bleach (Sodium Hypochlorite) Allergy Hives Verified 09/17/23 11:36 navy jorge Allergy Pain in Verified 09/17/23 11:36 joints vitamins with Allergy Hives Verified 09/17/23 11:36 calcium no.78 [From Prenatabs FA] vancomycin Allergy Rash Verified 09/17/23 11:36 Surgical History History of dental surgery Hx of tonsillectomy Social History Smoking Status: Former smoker ROS ROS ED Constitutional Constitutional ED: Denies chills or fever(s) Eyes Eyes: Denies blurry vision or change in vision ENT ENT ED: Reports rhinorrhea; Denies sore throat Cardiovascular Cardiovascular: Denies chest pain or palpitations Respiratory/Chest Respiratory/Chest: Denies cough or dyspnea Gastrointestinal Gastrointestinal: Denies nausea or vomiting Genitourinary Genitourinary ED: Denies dysuria or hematuria Musculoskeletal Musculoskeletal: Denies back pain or neck pain Integumentary Denies abscess or rash Neurologic Neurologic: Reports headache(s); Denies weakness Allergic/Immunologic Allergic/Immunologic ED: Denies mouth swelling or urticaria EXAM Physical Exam Const Vital Signs: 09/17/23 11:36 09/17/23 11:50 09/17/23 12:19 Temperature 96.9 F L 99.1 F Temperature Source Temporal Oral Pulse Rate 58 L 72 73 Respiratory Rate 14 16 18 Blood Pressure 127/75 H 129/70 H 107/88 H Blood Pressure Mean 92 89 94 Pulse Ox 100 99 100 Oxygen Delivery Method Room Air Room Air Room Air 09/17/23 12:30 09/17/23 13:00 09/17/23 13:19 Temperature Temperature Source Pulse Rate 78 60 67 Respiratory Rate 18 18 16 Blood Pressure 118/73 109/66 109/66 Blood Pressure Mean 88 80 80 Pulse Ox 98 98 99 Oxygen Delivery Method Room Air Room Air Room Air 09/17/23 13:30 09/17/23 14:00 09/17/23 14:30 Temperature 99.1 F 98.3 F Temperature Source Oral Oral Pulse Rate 64 64 64 Respiratory Rate 16 16 16 Blood Pressure 110/57 L 99/55 L 110/57 L Blood Pressure Mean 74 69 74 Pulse Ox 97 97 97 Oxygen Delivery Method Room Air Room Air Room Air 09/17/23 14:00 Temperature Temperature Source Pulse Rate 92 Respiratory Rate 14 Blood Pressure 92/68 Blood Pressure Mean 76 Pulse Ox 97 Oxygen Delivery Method Room Air Positive well nourished, well developed and obese General Appearance ED: well developed and NAD Nutritional Appearance: obese HEENT Reports moist mucous membranes Eyes PERRL and EOMs intact bilaterally Neck supple and no JVD Resp normal respiratory effort and clear to auscultation bilaterally Cardio Rate: regular rate Rhythm: regular rhythm GI soft to palpation, non-tender and non-distended Neuro oriented x3, CN's II-XII intact bilaterally and no sensory deficits noted Neuro Narrative: Patient states she has some blurred vision to the left visual field. There is no loss of vision noted. [place] Coma Scale: document GCS findings Spontaneous Obeys Commands Oriented 15 Sensorium / Orientation: alert Speech: speech normal Motor Exam: strength 5/5 throughout Psych mental status grossly normal NIHSS NIHSS Initial: 1a Level of Consciousness: 0 1b LOC Questions (Score 2 if aphasic/stupor): 0 1c LOC Commands (Only score 1st attempt): 0 3 Visual: 1 4 Facial Palsy: 0 5 Motor Arm Right (UN = amputation/fusion): 0 5 Motor Arm Left: 0 6 Motor Leg Right: 0 6 Motor Leg Left: 0 7 Limb ataxia (Only + if out of proportion): 0 8 Sensory (Aphasia/stupor=0 or 1, coma=2): 0 9 Best Language: 0 10 Dysarthria (mute, coma=2, intubated=UN): 0 11 Extinction and Inattention (only scored if +): 0 Total Score: 1 MDM MDM MDM Narrative Medical decision making narrative: Differential diagnosis includes stroke, ocular migraine, intracranial bleeding, electrolyte abnormality, anemia, and anxiety. Stroke alert was called. CT scan of the brain will be obtained to assess for intracranial bleeding and stroke. CTA of the head and neck will be obtained to assess for large vessel occlusion. EKG will be obtained to assess for cardiac dysrhythmia and cardiac ischemia. CBC will be obtained to assess for leukocytosis and anemia. Basic metabolic profile will be obtained to assess for electrolyte abnormality and renal function. PT with INR and PTT will be obtained to assess for coagulopathy. High-sensitivity troponin will be obtained to assess for cardiac ischemia. Chest x-ray will be obtained to assess for pneumonia. Lab Data Attestation: I reviewed the patient's lab results. Lab results narrative: CBC was reviewed and there was a mild leukocytosis of 11.5. Remainder is within normal limits. Basic metabolic profile was reviewed and was within normal limits. High-sensitivity troponin was reviewed and was normal at 4. PT with INR and PTT were reviewed and were within normal limits. Labs: Laboratory Results - last 24 hr 09/17/23 09/17/23 11:44 12:00 WBC 11.5 H RBC 5.17 Hgb 13.8 Hct 43.3 MCV 83.8 MCH 26.7 L MCHC 31.9 L RDW Std Deviation 40.7 RDW Coeff of Mirella 13.3 Plt Count 345 MPV 9.7 Immature Gran % (Auto) 0.500 Neut % (Auto) 68.0 Lymph % (Auto) 21.8 Toombs % (Auto) 6.8 Eos % (Auto) 2.3 Baso % (Auto) 0.6 Absolute Neuts (auto) 7.8 H Absolute Lymphs (auto) 2.50 Nucleated RBC % 0 PT 13.4 INR 1.0 APTT 28.1 Sodium 140 Potassium 3.7 Chloride 104 Carbon Dioxide 29.0 Anion Gap 7 BUN 9 Creatinine 0.79 Estim Creat Clear Calc 121.51 Est GFR (MDRD) Af Amer 110 Est GFR (MDRD) Non-Af 91 BUN/Creatinine Ratio 11.4 Glucose 93 Calcium 9.0 Troponin I High Sens 4 POC Glucose 108 H Radiography Chest X-Ray - ED: 1 View, Read by ED Physician, Read by Radiologist and No Acute Disease Diagnostic Testing: Clinical Impression(s) from Imaging Studies Brain CT 09/17/23 11:50 IMPRESSION: 1. No acute intracranial abnormality. 2. Paranasal sinusitis. Aspect score 10. Electronically Signed: Spencer Anthony MD at 12:14 EDT , ADDENDUM: 09/17/23 1224 IMPRESSION: 1. No acute intracranial abnormality. 2. Paranasal sinusitis. Aspect score 10. N.B. : The above Results were Read Back by Spencer Anthony MD to Bunny Reagan DO, and understanding confirmed on 09/17/2023 12:17:51 (ET). Electronically Signed: Spencer Anthony MD at 12:14 EDT , Chest X-Ray 09/17/23 11:50 IMPRESSION: No acute cardiopulmonary abnormality. No interval change. Electronically Signed: Spenecr Anthony MD at 13:45 EDT , Head/Neck CTA 09/17/23 12:00 IMPRESSION: Normal CTA Head and CTA Neck N.B. : The above Results were Read Back by Spencer Anthony MD to Bunny Reagan DO, and understanding confirmed on 09/17/2023 12:17:04 (ET). Electronically Signed: Spencer Anthony MD at 12:17 EDT , ADDENDUM: 09/17/23 1224 IMPRESSION: Normal CTA Head and CTA Neck N.B. : The above Results were Read Back by Spencer Anthony MD to Bunny Reagan DO, and understanding confirmed on 09/17/2023 12:17:04 (ET). Electronically Signed: Spencer Anthony MD at 12:17 EDT , Portable 1 view chest x-ray was obtained. On my independent interpretation, lung veras are clear. There is normal cardiac silhouette. Bony thorax is normal. There is no acute process noted. Radiologist also interpreted the x- ray and agrees. CT scan of the brain was obtained. There is no acute intracranial abnormality. There is some paranasal sinusitis. This was interpreted by the radiologist and was also independently reviewed by myself. CTA of the head and neck was obtained. There is no evidence of aneurysm or larg e vessel occlusion. There is no evidence of carotid stenosis. This was interpreted by the radiologist and was also independently reviewed by myself. EKG Initial EKG: Attestation: I personally reviewed and interpreted this EKG as follows: Interpretation: Sinus Rhythm (68) and No Acute Injury Pattern Comments: EKG was obtained. On my independent interpretation, it showed a normal sinus rhythm with a rate of 68. OK interval, QRS interval, and QTc intervals were all normal. [place] was normal. There are no acute ST or T wave changes. Prior EKG tracings: available for review Prior: Unchanged (06/11/2023) Treatment and Re-Evaluation Narrative: Patient was evaluated by stroke neurologist, Dr. Thompson at [facility]. He felt that this is most likely an ocular migraine. He recommended treating the headache. Patient was ordered Reglan and Benadryl. Patient did not want Reglan and Benadryl. Patient was requesting Tylenol for her headache. Patient's symptoms are improving. Stroke neurologist does not feel that there is any further workup necessary at this time. Patient was advised of her findings. Patient was instructed to follow-up with her primary care physician in 5 to 7 days. Patient understood and was agreeable with the plan. All questions were answered. Discharge Plan Triage Chief Complaint: Neuro S/Sx ED Provider: Bunny Reagan Dx/Rx/DC Orders Clinical Impression: Ocular migraine, Visual disturbance Instructions: ED Headache Unspecified, ED, Migraine (Classical) Prescriptions: No Action acetaminophen 500 mg tablet 1,000 mg PO Q6H PRN (Reason: pain) fluoxetine 40 mg capsule 40 mg PO DAILY propranolol 20 mg tablet 20 mg PO BID Patient Comments: pt states md wants her to take twice daily, but she normally forgets second dose. guanfacine 1 mg tablet extended release 24 hr 1 mg PO DAILY Patient Comments: pt was supposed to start med today Rx Instructions: take 1 tab by mouth once daily for 7 days, then increase to 1 tab twice daily Saline Nasal 0.65 % aerosol,spray 1 spray intranasal DAILY PRN (Reason: nasal congestion) Patient Comments: pt states she tried this to help with congestion a couple days ago with no relief. albuterol sulfate [Ventolin HFA] 90 mcg/actuation HFA aerosol inhaler 2 puff inhalation Q4H PRN (Reason: Wheezing) Primary Care Provider: Alex Abbasi Referrals: Alex Abbasi MD [Primary Care Provider] - 5-7 Days Disposition Disposition: Home, Self Care
--- NOTE | 2023-09-17 11:53 | NURSING ---
STROKE CALLED [phone]
--- NOTE | 2023-09-17 11:53 | NURSING ---
FAXED FACESHEET TO [facility]
--- NOTE | 2023-09-17 12:00 | CT_ITS ---
INDICATION: Neuro deficit, acute, stroke suspected EXAMINATION: CTA HEAD - CTA Head and Neck Stroke W/ Contrast (and W/O if performed) TECHNIQUE: [place] of [place]/head CT angiogram protocol was performed following IV contrast. Routine carotid CT angiogram protocol was performed with IV contrast. NASCET criteria using the distal ICAs for comparison were used for evaluation of stenoses. 3D reconstructions were reviewed of the CT angiogram head and neck. A radiation dose optimization technique was used for this scan. IV Contrast dosage and agent: 100 cc [id number] COMPARISON: None. FINDINGS: --Anterior cerebral circulation: ACAs: No significant stenosis at the visualized segments. ACOM: Present. MCAs: No significant stenosis at the visualized segments. --Posterior cerebral circulation: PCOMs: Left P-comm is present. director of corporate strategy: No significant stenosis at the visualized segments. BASILAR ARTERY: No significant stenosis. --Carotid and vertebral circulation: AORTIC ARCH AND BRANCHES: Normal anatomy, patent. RIGHT CCA: No occlusion, significant stenosis or dissection. RIGHT ICA: No occlusion, significant stenosis or dissection. LEFT CCA: No occlusion, significant stenosis or dissection. LEFT ICA: No occlusion, significant stenosis or dissection. RIGHT VERTEBRAL ARTERY: No occlusion, significant stenosis or dissection. LEFT VERTEBRAL ARTERY: No occlusion, significant stenosis or dissection. NECK SOFT TISSUES: Unremarkable. LUNG APICES: Clear. BONES: Unremarkable. CT/STROKE CTA Head AND Neck W/Con IMPRESSION: Normal CTA Head and CTA Neck N.B. : The above Results were Read Back by Spencer Anthony MD to Bunny Reagan DO, and understanding confirmed on 09/17/2023 12:17:04 (ET). Electronically Signed: Spencer Anthony MD at 12:17 EDT ,
[2023-09-17 12:02] LABS: Bedside Glucose 108 mg/dL (74-106)
--- NOTE | 2023-09-17 12:09 | ED.RN ---
awaiting [facility] neurologist to come through on computer
[2023-09-17 12:12] LABS: Absolute Neutrophil Count 7.8 X10^3/uL (2.0-7.7); Basophil# 0.07 X10^3/uL; Basophil% 0.6 % (0-1); Eosinophil# 0.26 X10^3/uL; Eosinophils% 2.3 % (0-5); Hematocrit 43.3 % (37-47); Hemoglobin 13.8 g/dL (12.0-15.0); Lymphocyte % 21.8 % (19-41); Mean Corp Hgb Conc 31.9 g/dL (32-36); Mean Corpuscular Hgb 26.7 pg (27.0-32.0); Mean Corpuscular Volume 83.8 fL (81-99); Mean Platelet Vol. 9.7 fl (6.2-12.0); Monocyte# 0.78 X10^3/uL; Monocyte% 6.8 % (0-10); NRBC Flagged by Analyzer 0 % (0-5); Platelet Count 345 K/mm3 (150-450); RBC Distribution Width CV 13.3 % (11.6-14.6); RBC Distribution Width SD 40.7 fl (35.1-43.9); Red Blood Count 5.17 M/mm3 (4.2-5.4); White Blood Count 11.5 K/mm3 (4.4-11.0)
[2023-09-17 12:21] LABS: Partial Thromboplast Time 28.1 Seconds (24.1-36.2); Prothrombin Time (Protime)PT. 13.4 SECONDS (11.7-14.9)
[2023-09-17 12:28] LABS: Anion Gap 7 (5-15); BUN 9 mg/dL (7-18); BUN/Creat Ratio 11.4 RATIO (10-20); Chloride 104 mmol/L (98-107); Creatinine, Serum 0.79 mg/dL (0.55-1.02); EST Glomerular Filtration Rate 91 mL/min (>60); Est Glom Filt Rate - Afr Amer 110 mL/min (>60); Estimated Creatinine Clearance 121.51 ml/min; Glucose 93 mg/dL (74-106); Potassium 3.7 mmol/L (3.5-5.1); Sodium Level 140 mmol/L (136-145); Troponin-I HS 4 pg/mL (3.0-54.0)
[2023-09-17] MEDS: Acetaminophen 500 MG Tablet 1000 MG PO (12:41)
== END 2023-09-17 14:51 | disposition home or self-care (01) ==
PROVIDERS: Emergency Provider Emergency Medicine; PCP Family Medicine; Visit Provider Emergency Medicine
DX: G43.909 Migraine, unspecified, not intractable, without status migrainosus (principal); Z87.891 Personal history of nicotine dependence; H53.9 Unspecified visual disturbance; J32.9 Chronic sinusitis, unspecified; E66.9 Obesity, unspecified; J45.909 Unspecified asthma, uncomplicated; Z79.899 Other long term (current) drug therapy; F98.8 Other specified behavioral and emotional disorders with onset usually occurring in childhood and adolescence
CPT/HCPCS: 70450; 70496; 70498; 71045; 80048; 82962; 84484; 85025; 85610; 85730; 93005; 99285; Q9967; A4216